=== PATIENT | female | born 1935 | race Caucasian/White ===

== ENCOUNTER 2018-03-09 14:25 | Inpatient (IN) | payer MEDICARE, OTHER ==
[2018-03-09] VITALS (7 sets, daily range): BP systolic 110–156; BP diastolic 51–106
[~2018-03-09] VITALS: Ht 157.5 cm; Wt 88.4 kg
[2018-03-09] MEDS: vancomycin/NS 1 GM ADD-VANTAGE 250 ML IV ONE ×2 (07:00→19:45)
[~2018-03-09 14:25] MED LIST: AMLO-93 PO; ASPI81TA47 PO; IBUP200C5 PO; MULT-1133 PO; SOY155CA PO
[2018-03-09] MEDS ORDERED: nitroGLYCERIN-Tridil 50MG/D5W 250 ML IV PRN ×2 (14:57→20:25)
[2018-03-09 15:53] LABS: MAGNESIUM 2.2 MG/DL (1.5-2.4); PHOSPHORUS 2.7 MG/DL (2.3-4.5)
[2018-03-09] MEDS ORDERED: iohexol 350MG/ML 100ml bottle IV ONE ×2 (16:10→17:11)
[2018-03-09] MEDS ORDERED: fentaNYL/PF 50MCG/1 ML 2ML syringe ONE (16:10)
[2018-03-09] MEDS ORDERED: midazolam 2 mg/2 ml injection ONE (16:10)
[2018-03-09] MEDS ORDERED: LIDOcaine 1%/PF (10mg/ml) 5ml vial ONE ×2 (16:17→17:33)
[2018-03-09] MEDS ORDERED: phenylephrine 10mg/ml inj IV ONE (17:04)
[2018-03-09] MEDS ORDERED: NORepinephrine 8mg/ 250ml NS 250 ML IV SCH ×2 (17:10→18:20)
[2018-03-09] MEDS ORDERED: iohexol 350 MG/ML 50ML vial IV ONE (17:17)
[2018-03-09] MEDS ORDERED: ondansetron/PF 4mg/2ml inj IV PRN (17:25)
[2018-03-09] MEDS ORDERED: mag hydrox/Alum hydrox/simeth 30ml oral suspension PO PRN (17:25)
[2018-03-09] MEDS ORDERED: acetaminophen 325mg tablet PO PRN (17:25)
[2018-03-09] MEDS ORDERED: magnesium hydroxide 30ml (MOM) UD suspension PO PRN (17:25)
[2018-03-09 19:18] LABS: BASOPHILS % (AUTO) 0.3 % (0-1); EOSINOPHILS # (AUTO) 0.2 X10'3 (0-0.9); EOSINOPHILS % (AUTO) 1.6 % (0-6); HEMATOCRIT 38.5 % (35.0-45.0); HEMOGLOBIN 13.5 g/dl (12.0-16.0); LYMPHOCYTES # (AUTO) 1.3 X10'3 (1.1-4.8); LYMPHOCYTES % (AUTO) 9.2 % (21-51); MEAN CORPUSCULAR HEMOGLOBIN 32.8 PG (27.0-31.0); MEAN CORPUSCULAR HGB CONC 35.2 % (33.0-36.5); MEAN CORPUSCULAR VOLUME 93.4 FL (78-98); MEAN PLATELET VOLUME 7.8 FL (7.4-10.4); MONOCYTES # (AUTO) 0.4 X10'3 (0-0.9); MONOCYTES % (AUTO) 3.1 % (2-12); NEUTROPHILS # (AUTO) 12.5 X10'3 (1.8-7.7); NEUTROPHILS % (AUTO) 85.8 % (42-75); PLATELET COUNT 238 X10'3 (140-440); RED BLOOD COUNT 4.12 X10'6 (4.20-5.60); RED CELL DISTRIBUTION WIDTH 13.8 % (11.5-14.5); WHITE BLOOD COUNT 14.6 X10'3 (4.5-11.0)
[2018-03-09 19:25] LABS: INR 1.1 INR; PARTIAL THROMBOPLASTIN TIME 27 SECONDS (22-32); PROTHROMBIN TIME 10.9 SECONDS (9.0-12.0)
[2018-03-09] MEDS ORDERED: HYDROmorphone inj. 0.5 MG/0.5 ML DISP.SYRIN IV PRN (19:30)
[2018-03-09 19:32] LABS: ALANINE AMINOTRANSFERASE 33 U/L (12-78); ALBUMIN 3.2 G/DL (3.4-5.0); ALKALINE PHOSPHATASE 53 IU/L (46-116); ANION GAP 11 (8-16); ASPARTATE AMINO TRANSFERASE 39 U/L (10-37); BILIRUBIN,TOTAL 0.3 MG/DL (0.1-1.0); BLOOD UREA NITROGEN 18 MG/DL (7-18); BUN/CREATININE RATIO 19.4 (6.6-38.0); CALCIUM 8.5 MG/DL (8.5-10.1); CHLORIDE 111 MMOL/L (99-107); CREATININE 0.93 MG/DL (0.40-0.90); GLUCOSE 138 MG/DL (70-104); MAGNESIUM 2.1 MG/DL (1.5-2.4); PHOSPHORUS 3.6 MG/DL (2.3-4.5); SODIUM 144 MMOL/L (135-145); TOTAL CARBON DIOXIDE 22.2 MMOL/L (24-32); TOTAL PROTEIN 6.4 G/DL (6.4-8.2); eGFR 58 ML/MIN
[2018-03-09] MEDS ORDERED: cefazolin/dext.iso 2gm/50ml 50 ML IV ONE (19:45)
[2018-03-09] MEDS ORDERED: MESSAGE TO NURSING PO ONE ×4 (19:45)
[2018-03-09] MEDS ORDERED: insulin regular, human inj. 100 UNITS in normal saline 100ml IV soln 100 ML IV SCH ×2 (19:45)
[2018-03-09] MEDS ORDERED: dextrose 50%-water 50ml dispensing syringe IV PRN (19:45)
[2018-03-09] MEDS: ceFAZolin 2gm in dextrose, iso 100 ML IV ONE (19:55)
[2018-03-09] MEDS ORDERED: mupirocin 2% ointment 22GM NS SCH (20:00)
[2018-03-09] MEDS: ringers solution, lacted 1,000 ML IV ONE (20:17)
[2018-03-09] MEDS ORDERED: heparin 10,000 units/1 ML INJ IV PRN (20:25)
[2018-03-09] MEDS ORDERED: heparin 10,000 units/1 ML INJ IV ONE (20:25)
[2018-03-10] VITALS (22 sets, daily range): BP systolic 68–150; BP diastolic 24–63
[2018-03-10 01:36] LABS: ABG BASE EXCESS -3.1 mmol/L (-2.0-3.0); ABG HCO3 19.3 mmol/L (22.0-26.0); ABG OXYGEN SATURATION 97.5 % (95-98); ABG PCO2 (T) 27.6 mmHg (32.0-45.0); ABG PH (T) 7.463 (7.350-7.450); FCOHb 0.3 % (0.5-1.5); FLOW 2 L/min; FMetHb 0.2 % (0.3-1.12); PATIENT TEMPERATURE 36.8; TOTAL HEMOGLOBIN 13.4 G/dl (12.0-16.0)
[2018-03-10 03:25] LABS: CLARITY,URINE CLEAR (Clear); COLOR,URINE YELLOW (Yellow); GLUCOSE, URINE NEGATIVE (Neg); KETONES,URINE NEGATIVE (Neg); LEUKOCYTE ESTERASE ,URINE NEGATIVE (Neg); NITRITES, URINE NEGATIVE (Neg); OCCULT BLOOD,URINE MODERATE (Neg); PROTEIN,URINE NEGATIVE (Neg); UROBILINOGEN,URINE 0.2 E.U/dL (0.2-1.0)
[2018-03-10 03:26] LABS: BASOPHILS # (AUTO) 0.1 X10'3 (0-0.2); BASOPHILS % (AUTO) 0.7 % (0-1); EOSINOPHILS # (AUTO) 0.1 X10'3 (0-0.9); EOSINOPHILS % (AUTO) 0.8 % (0-6); HEMATOCRIT 36.6 % (35.0-45.0); HEMOGLOBIN 12.6 g/dl (12.0-16.0); LYMPHOCYTES % (AUTO) 21.6 % (21-51); MEAN CORPUSCULAR HEMOGLOBIN 32.5 PG (27.0-31.0); MEAN CORPUSCULAR HGB CONC 34.4 % (33.0-36.5); MEAN CORPUSCULAR VOLUME 94.5 FL (78-98); MEAN PLATELET VOLUME 7.8 FL (7.4-10.4); MONOCYTES # (AUTO) 0.7 X10'3 (0-0.9); NEUTROPHILS # (AUTO) 6.6 X10'3 (1.8-7.7); NEUTROPHILS % (AUTO) 69.9 % (42-75); PLATELET COUNT 200 X10'3 (140-440); RED BLOOD COUNT 3.87 X10'6 (4.20-5.60); RED CELL DISTRIBUTION WIDTH 13.5 % (11.5-14.5); WHITE BLOOD COUNT 9.4 X10'3 (4.5-11.0)
[2018-03-10 03:32] LABS: ALANINE AMINOTRANSFERASE 36 U/L (12-78); ALBUMIN 2.9 G/DL (3.4-5.0); ALBUMIN/GLOBULIN RATIO 0.9 (1.1-1.5); ALKALINE PHOSPHATASE 48 IU/L (46-116); ANION GAP 9 (8-16); ASPARTATE AMINO TRANSFERASE 59 U/L (10-37); BILIRUBIN,TOTAL 0.4 MG/DL (0.1-1.0); BLOOD UREA NITROGEN 17 MG/DL (7-18); BUN/CREATININE RATIO 18.3 (6.6-38.0); CALCIUM 8.2 MG/DL (8.5-10.1); CHLORIDE 113 MMOL/L (99-107); CHOL/HDL RATIO 3.4 (0.00-4.99); CHOLESTEROL 195 MG/DL (0-200); CREATININE 0.93 MG/DL (0.40-0.90); GLUCOSE 117 MG/DL (70-104); HDL CHOLESTEROL 58 MG/DL (35-60); LDL CHOLESTEROL 120 MG/DL (50-100); MAGNESIUM 2.2 MG/DL (1.5-2.4); SODIUM 147 MMOL/L (135-145); TOTAL CARBON DIOXIDE 24.8 MMOL/L (24-32); TRIGLYCERIDES 69 MG/DL (20-135); eGFR 58 ML/MIN
[2018-03-10 03:43] LABS: UA COLLECTION TYPE FOLEY CATH
[2018-03-10 03:51] LABS: WBC,URINE NONE SEEN /HPF (0-4)
[2018-03-10 03:52] LABS: BACTERIA,URINE FEW /HPF (Neg); SQUAMOUS EPITHELIAL CELL,UR NONE SEEN /LPF (FEW)
[2018-03-10 03:53] LABS: YEAST FEW /HPF (NEGATIVE)
[2018-03-10] MEDS: ringers solution, lacted 1,000 ML IV ONE (05:00)
[2018-03-10] MEDS ORDERED: LORazepam 2 mg/ml vial IV ONE (06:00)
[2018-03-10] MEDS ORDERED: famotidine/PF 10 mg/ml inj IV ONE (06:00)
[2018-03-10] MEDS ORDERED: mupirocin 2% nasal ointment 1gm UD NS SCH (06:34)
[2018-03-10] MEDS ORDERED: LORazepam 2 mg/ml vial ONE (07:18)
[2018-03-10] MEDS ORDERED: SUFENTANIL CITRATE 50 MCG/ML 2ml ampule IV ONE (07:19)
[2018-03-10] MEDS ORDERED: nitroGLYCERIN in D5W 50mg/250ml (Tridil) infusion IV ONE (07:20)
[2018-03-10] MEDS ORDERED: protamine sulf. 10mg/ml inj. IV ONE (07:20)
[2018-03-10] MEDS ORDERED: isoflurane 100ml inhalation liquid IH ONE (07:20)
[2018-03-10] MEDS ORDERED: DOPamine/D5W 400mg/250ml bag IV ONE (07:20)
[2018-03-10] MEDS ORDERED: etomidate 2mg/ml inj. ONE (07:24)
[2018-03-10] MEDS ORDERED: rocuronium 10mg/ml inj IV ONE ×2 (07:24→13:24)
[2018-03-10] MEDS ORDERED: MAGNESIUM SULFATE 4 MEQ/ML (1gm/2ml) injection ONE (08:00)
[2018-03-10] MEDS ORDERED: phenylephrine 10mg/ml inj IV ONE (08:00)
[2018-03-10] MEDS ORDERED: albumin (human) 25% 100 ML IV solution IV ONE (08:00)
[2018-03-10] MEDS ORDERED: LIDOcaine 2% (20 mg/ml) 5ml cardiac syringe ONE (08:00)
[2018-03-10] MEDS ORDERED: atorvastatin 20mg tablet PO SCH (08:00)
[2018-03-10] MEDS ORDERED: calcium chloride 100 MG/1 ML inj IV ONE (08:00)
[2018-03-10] MEDS ORDERED: heparin 1,000 units/ml 10ml inj ONE (08:00)
[2018-03-10] MEDS ORDERED: potassium Cl 2 mEq/ml inj IV ONE (08:00)
[2018-03-10] MEDS ORDERED: aspirin 81mg tab.chew PO SCH (08:30)
[2018-03-10 08:36] LABS: ABG BASE EXCESS -4.4 mmol/L (-2.0-3.0); ABG HCO3 18.7 mmol/L (22.0-26.0); ABG OXYGEN SATURATION 99.4 % (95-98); ABG PCO2 28.8 mmHg (35.0-45.0); ABG PH 7.431 (7.350-7.450); ABG PO2 389.2 mmHg (60.0-100.0); CL (ABG) 115 mmol/L (99-107); FCOHb 0.3 % (0.5-1.5); FMetHb 0.3 % (0.3-1.12); FO2Hb 98.8 % (94-100); GLUCOSE (ABG) 112 mg/dl (70-105); IONIZED CA (ABG) 1.11 mmol/L (1.03-1.32); K (ABG) 3.8 mmol/L (3.3-5.1)
[2018-03-10] MEDS: insulin Lispro (HumaLOG) vial - multi-dose SQ SCH ×4 (09:00→17:00)
[2018-03-10 09:05] LABS: ACT @ 1.70 U 264 SEC (193-297); ACT @ 2.84 U 375 SEC (260-420); BASELINE ACT 138 SEC (101-148); PATIENT WEIGHT 81.0k KG
[2018-03-10] MEDS ORDERED: TRANEXAMIC ACID IV ONE (09:30)
[2018-03-10] MEDS ORDERED: NORMAL SALINE IV ONE (09:30)
[2018-03-10 09:31] LABS: ABG BASE EXCESS -5.1 mmol/L (-2.0-3.0); ABG HCO3 19.7 mmol/L (22.0-26.0); ABG OXYGEN SATURATION 99.2 % (95-98); ABG PCO2 35.8 mmHg (35.0-45.0); ABG PH 7.358 (7.350-7.450); ABG PO2 213.6 mmHg (60.0-100.0); CL (ABG) 114 mmol/L (99-107); FCOHb 0.2 % (0.5-1.5); FMetHb 0.2 % (0.3-1.12); FO2Hb 98.8 % (94-100); GLUCOSE (ABG) 124 mg/dl (70-105); IONIZED CA (ABG) 1.12 mmol/L (1.03-1.32); K (ABG) 3.8 mmol/L (3.3-5.1); TOTAL HEMOGLOBIN 12.1 G/dl (12.0-16.0)
[2018-03-10] MEDS ORDERED: papaverine 30 mg/ml 2ml inj. IA ONE (09:46)
[2018-03-10] MEDS ORDERED: MESSAGE TO NURSING PO ONE (10:00)
[2018-03-10 10:05] LABS: ABG BASE EXCESS -3.1 mmol/L (-2.0-3.0); ABG HCO3 20.7 mmol/L (22.0-26.0); ABG OXYGEN SATURATION 99.2 % (95-98); ABG PCO2 31.8 mmHg (35.0-45.0); ABG PH 7.431 (7.350-7.450); CL (ABG) 111 mmol/L (99-107); FCOHb 0.1 % (0.5-1.5); FMetHb 0.7 % (0.3-1.12); FO2Hb 98.4 % (94-100); GLUCOSE (ABG) 109 mg/dl (70-105); IONIZED CA (ABG) 0.94 mmol/L (1.03-1.32); K (ABG) 3.8 mmol/L (3.3-5.1); NA (ABG) 120 mmol/L (135-145); TOTAL HEMOGLOBIN 8.1 G/dl (12.0-16.0)
[2018-03-10 10:37] LABS: ABG HCO3 22.5 mmol/L (22.0-26.0); ABG OXYGEN SATURATION 99.2 % (95-98); ABG PH 7.402 (7.350-7.450); ABG PO2 460.3 mmHg (60.0-100.0); CL (ABG) 112 mmol/L (99-107); FCOHb 0.1 % (0.5-1.5); FMetHb 0.8 % (0.3-1.12); FO2Hb 98.3 % (94-100); GLUCOSE (ABG) 112 mg/dl (70-105); IONIZED CA (ABG) 0.94 mmol/L (1.03-1.32); K (ABG) 4.3 mmol/L (3.3-5.1); NA (ABG) 120 mmol/L (135-145); TOTAL HEMOGLOBIN 7.6 G/dl (12.0-16.0)
[2018-03-10 10:47] LABS: ABG BASE EXCESS VENOUS 1.7 mmol/L; ABG HCO3 VENOUS 26.6 mmol/L; ABG PCO2 VENOUS 43.4 mmHg; ABG PO2 VENOUS 51.4 mmHg; CL (ABG) 112 mmol/L (99-107); FCOHb VENOUS 0.3 %; FMetHb VENOUS 0.5 %; FO2Hb VENOUS 87.2 %; GLUCOSE (ABG) 119 mg/dl (70-105); IONIZED CA (ABG) 0.95 mmol/L (1.03-1.32); K (ABG) 4.6 mmol/L (3.3-5.1); TOTAL HEMOGLOBIN 8.5 G/dl (12.0-16.0)
[2018-03-10 11:06] LABS: ABG BASE EXCESS -3.7 mmol/L (-2.0-3.0); ABG HCO3 26.6 mmol/L (22.0-26.0); ABG OXYGEN SATURATION 99.2 % (95-98); ABG PO2 412.8 mmHg (60.0-100.0); CL (ABG) 113 mmol/L (99-107); FCOHb 0.2 % (0.5-1.5); FMetHb 0.9 % (0.3-1.12); FO2Hb 98.1 % (94-100); GLUCOSE (ABG) 177 mg/dl (70-105); IONIZED CA (ABG) 1.02 mmol/L (1.03-1.32); K (ABG) 4.1 mmol/L (3.3-5.1); NA (ABG) 136 mmol/L (135-145); TOTAL HEMOGLOBIN 8.2 G/dl (12.0-16.0)
[2018-03-10 11:06] LABS: ABG BASE EXCESS -3.4 mmol/L (-2.0-3.0); ABG HCO3 27.4 mmol/L (22.0-26.0); ABG OXYGEN SATURATION 99.3 % (95-98); CL (ABG) 113 mmol/L (99-107); FCOHb 0.1 % (0.5-1.5); FMetHb 0.9 % (0.3-1.12); FO2Hb 98.3 % (94-100); GLUCOSE (ABG) 162 mg/dl (70-105); IONIZED CA (ABG) 1.01 mmol/L (1.03-1.32); K (ABG) 4.2 mmol/L (3.3-5.1); NA (ABG) 137 mmol/L (135-145); TOTAL HEMOGLOBIN 8.1 G/dl (12.0-16.0)
[2018-03-10 11:16] LABS: ABG BASE EXCESS -3.1 mmol/L (-2.0-3.0); ABG HCO3 24.7 mmol/L (22.0-26.0); ABG OXYGEN SATURATION 99.3 % (95-98); ABG PCO2 61.8 mmHg (35.0-45.0); ABG PO2 466.9 mmHg (60.0-100.0); CL (ABG) 114 mmol/L (99-107); FCOHb 0.3 % (0.5-1.5); FMetHb 0.9 % (0.3-1.12); FO2Hb 98.1 % (94-100); GLUCOSE (ABG) 184 mg/dl (70-105); IONIZED CA (ABG) 0.97 mmol/L (1.03-1.32); NA (ABG) 132 mmol/L (135-145); TOTAL HEMOGLOBIN 7.8 G/dl (12.0-16.0)
[2018-03-10 11:20] LABS: ABG BASE EXCESS -2.9 mmol/L (-2.0-3.0); ABG HCO3 21.1 mmol/L (22.0-26.0); ABG OXYGEN SATURATION 99.2 % (95-98); ABG PCO2 32.8 mmHg (35.0-45.0); ABG PH 7.427 (7.350-7.450); ABG PO2 465.1 mmHg (60.0-100.0); CL (ABG) 113 mmol/L (99-107); FCOHb 0.3 % (0.5-1.5); FMetHb 0.9 % (0.3-1.12); GLUCOSE (ABG) 164 mg/dl (70-105); IONIZED CA (ABG) 0.95 mmol/L (1.03-1.32); K (ABG) 4.3 mmol/L (3.3-5.1); NA (ABG) 135 mmol/L (135-145); TOTAL HEMOGLOBIN 7.1 G/dl (12.0-16.0)
[2018-03-10 11:25] LABS: ABG BASE EXCESS 4.7 mmol/L (-2.0-3.0); ABG HCO3 27.8 mmol/L (22.0-26.0); ABG OXYGEN SATURATION 99.3 % (95-98); ABG PCO2 34.2 mmHg (35.0-45.0); ABG PH 7.528 (7.350-7.450); ABG PO2 452.3 mmHg (60.0-100.0); CL (ABG) 112 mmol/L (99-107); FCOHb 0.7 % (0.5-1.5); FMetHb 0.8 % (0.3-1.12); FO2Hb 97.8 % (94-100); GLUCOSE (ABG) 165 mg/dl (70-105); IONIZED CA (ABG) 0.91 mmol/L (1.03-1.32); NA (ABG) 138 mmol/L (135-145)
[2018-03-10 11:46] LABS: ABG BASE EXCESS -1.2 mmol/L (-2.0-3.0); ABG HCO3 24.1 mmol/L (22.0-26.0); ABG OXYGEN SATURATION 99.1 % (95-98); ABG PCO2 42.5 mmHg (35.0-45.0); ABG PH 7.371 (7.350-7.450); ABG PO2 411.6 mmHg (60.0-100.0); CL (ABG) 113 mmol/L (99-107); FCOHb 0.3 % (0.5-1.5); FMetHb 0.8 % (0.3-1.12); GLUCOSE (ABG) 185 mg/dl (70-105); IONIZED CA (ABG) 1.08 mmol/L (1.03-1.32); K (ABG) 4.6 mmol/L (3.3-5.1); NA (ABG) 138 mmol/L (135-145); TOTAL HEMOGLOBIN 8.8 G/dl (12.0-16.0)
[2018-03-10 12:20] LABS: ABG BASE EXCESS 1.5 mmol/L (-2.0-3.0); ABG HCO3 26.2 mmol/L (22.0-26.0); ABG OXYGEN SATURATION 99.2 % (95-98); ABG PCO2 41.9 mmHg (35.0-45.0); ABG PH 7.414 (7.350-7.450); ABG PO2 389.7 mmHg (60.0-100.0); CL (ABG) 113 mmol/L (99-107); FCOHb 0.3 % (0.5-1.5); FMetHb 0.6 % (0.3-1.12); FO2Hb 98.3 % (94-100); GLUCOSE (ABG) 170 mg/dl (70-105); IONIZED CA (ABG) 1.14 mmol/L (1.03-1.32); K (ABG) 4.3 mmol/L (3.3-5.1); NA (ABG) 140 mmol/L (135-145); TOTAL HEMOGLOBIN 8.4 G/dl (12.0-16.0)
[2018-03-10 12:55] LABS: ABG BASE EXCESS -0.8 mmol/L (-2.0-3.0); ABG HCO3 23.3 mmol/L (22.0-26.0); ABG OXYGEN SATURATION 98.5 % (95-98); ABG PCO2 35.8 mmHg (35.0-45.0); ABG PH 7.431 (7.350-7.450); ABG PO2 138.2 mmHg (60.0-100.0); CL (ABG) 113 mmol/L (99-107); FCOHb 0.4 % (0.5-1.5); FMetHb 0.4 % (0.3-1.12); FO2Hb 97.7 % (94-100); GLUCOSE (ABG) 149 mg/dl (70-105); IONIZED CA (ABG) 1.05 mmol/L (1.03-1.32); NA (ABG) 139 mmol/L (135-145); TOTAL HEMOGLOBIN 8.8 G/dl (12.0-16.0)
[2018-03-10] MEDS ORDERED: normal saline 250ml IV soln 250 ML IV PRN (13:30)
[2018-03-10] MEDS ORDERED: HYDROcodone/acetaminophen 10/325mg tab PO PRN ×2 (13:30)
[2018-03-10] MEDS ORDERED: dextrose 50%-water 50ml dispensing syringe IV PRN (13:30)
[2018-03-10] MEDS: sodium chloride 0.45% 1,000 ML IV SCH (13:30)
[2018-03-10] MEDS ORDERED: acetaminophen 325mg tablet PO PRN (13:30)
[2018-03-10] MEDS ORDERED: magnesium 2GM in 50ml NS 50 ML IV PRN (13:30)
[2018-03-10] MEDS ORDERED: sodium phosphate inj. 15 MMOL in dextrose 5%-water 150 ML IV PRN (13:30)
[2018-03-10] MEDS ORDERED: potassium Cl 20mEq/100mL bag 100 ML IV PRN (13:30)
[2018-03-10] MEDS ORDERED: sodium phosphate inj. 30 MMOL in dextrose 5%-water 250 ML IV PRN (13:30)
[2018-03-10] MEDS ORDERED: Neutra Phos packet PO PRN (13:30)
[2018-03-10] MEDS: insulin regular, human inj. 100 UNITS in normal saline 100ml IV soln 100 ML IV SCH ×12 (13:30→23:07)
[2018-03-10] MEDS ORDERED: magnesium hydroxide 30ml (MOM) UD suspension PO PRN (13:30)
[2018-03-10] MEDS ORDERED: ondansetron/PF 4mg/2ml inj IV PRN (13:30)
[2018-03-10] MEDS ORDERED: magnesium 4gm in 100ml NS 100 ML IV PRN (13:30)
[2018-03-10] MEDS ORDERED: metoclopramide 5 mg/ml inj IV PRN (13:30)
[2018-03-10] MEDS ORDERED: niCARDipine/sod cl 20mg/200ml 200 ML IV PRN (13:30)
[2018-03-10] MEDS ORDERED: nitroGLYCERIN-Tridil 50MG/D5W 250 ML IV PRN (13:30)
[2018-03-10 14:01] LABS: ABG BASE EXCESS -5.8 mmol/L (-2.0-3.0); ABG HCO3 18.8 mmol/L (22.0-26.0); ABG OXYGEN SATURATION 97.2 % (95-98); ABG PCO2 (T) 33.8 mmHg (32.0-45.0); ABG PH (T) 7.362 (7.350-7.450); FCOHb 0.3 % (0.5-1.5); FMetHb 0.2 % (0.3-1.12); FO2Hb 96.7 % (94-100); PATIENT TEMPERATURE 36.6; PEEP 5 cm H2O; RESPIRATORY RATE 12 b/min; TIDAL VOLUME 450 mL; TOTAL HEMOGLOBIN 12.9 G/dl (12.0-16.0)
[2018-03-10 14:09] LABS: BASOPHILS % (AUTO) 0.1 % (0-1); EOSINOPHILS # (AUTO) 0.1 X10'3 (0-0.9); EOSINOPHILS % (AUTO) 1.1 % (0-6); HEMATOCRIT 35.2 % (35.0-45.0); HEMOGLOBIN 12.2 g/dl (12.0-16.0); LYMPHOCYTES # (AUTO) 0.9 X10'3 (1.1-4.8); LYMPHOCYTES % (AUTO) 7.5 % (21-51); MEAN CORPUSCULAR HEMOGLOBIN 31.5 PG (27.0-31.0); MEAN CORPUSCULAR HGB CONC 34.7 % (33.0-36.5); MEAN CORPUSCULAR VOLUME 90.9 FL (78-98); MEAN PLATELET VOLUME 7.4 FL (7.4-10.4); MONOCYTES # (AUTO) 0.6 X10'3 (0-0.9); MONOCYTES % (AUTO) 4.8 % (2-12); NEUTROPHILS # (AUTO) 10.4 X10'3 (1.8-7.7); NEUTROPHILS % (AUTO) 86.5 % (42-75); PLATELET COUNT 71 X10'3 (140-440); RED BLOOD COUNT 3.87 X10'6 (4.20-5.60); RED CELL DISTRIBUTION WIDTH 15.1 % (11.5-14.5); WHITE BLOOD COUNT 12.1 X10'3 (4.5-11.0)
[2018-03-10 14:19] LABS: INR 1.2 INR; PARTIAL THROMBOPLASTIN TIME 34 SECONDS (22-32); PROTHROMBIN TIME 12.1 SECONDS (9.0-12.0)
[2018-03-10 14:24] LABS: ALANINE AMINOTRANSFERASE 29 U/L (12-78); ALBUMIN 2.8 G/DL (3.4-5.0); ALBUMIN/GLOBULIN RATIO 1.3 (1.1-1.5); ALKALINE PHOSPHATASE 31 IU/L (46-116); ANION GAP 13 (8-16); BLOOD UREA NITROGEN 15 MG/DL (7-18); BUN/CREATININE RATIO 14.7 (6.6-38.0); CALCIUM 7.9 MG/DL (8.5-10.1); CHLORIDE 116 MMOL/L (99-107); CREATININE 1.02 MG/DL (0.40-0.90); GLUCOSE 161 MG/DL (70-104); MAGNESIUM 3.7 MG/DL (1.5-2.4); SODIUM 153 MMOL/L (135-145); TOTAL CARBON DIOXIDE 24.5 MMOL/L (24-32); TOTAL PROTEIN 4.9 G/DL (6.4-8.2); eGFR 52 ML/MIN
[2018-03-10 14:25] LABS: ASPARTATE AMINO TRANSFERASE 104 U/L (10-37); PHOSPHORUS 2.9 MG/DL (2.3-4.5); POTASSIUM 3.6 MMOL/L (3.5-5.1)
[2018-03-10 14:36] LABS: ACTIVATED CLOTTING TIME 127 SEC (101-148)
[2018-03-10 14:46] LABS: ABG PH 7.069 (7.350-7.450)
[2018-03-10 14:46] LABS: NA (ABG) 118 mmol/L (135-145)
[2018-03-10 14:46] LABS: NA (ABG) 118 mmol/L (135-145)
[2018-03-10 14:47] LABS: ABG PCO2 96.8 mmHg (35.0-45.0)
[2018-03-10 14:47] LABS: ABG PH 7.093 (7.350-7.450)
[2018-03-10 14:48] LABS: TOTAL HEMOGLOBIN 6.8 G/dl (12.0-16.0)
[2018-03-10] MEDS: potassium Cl 20mEq/100mL bag 100 ML IV PRN ×2 (15:36→16:17)
[2018-03-10] MEDS: HYDROmorphone inj. 0.5 MG/0.5 ML DISP.SYRIN IV PRN ×2 (15:36→18:44)
[2018-03-10] MEDS: albumin (Human) 5% 250ml 250 ML IV PRN (15:37)
[2018-03-10] MEDS: ceFAZolin 1GM/D5W- ADD-VANTAGE 50 ML IV SCH (16:46)
[2018-03-10 19:23] LABS: BASOPHILS % (AUTO) 0 % (0-1); EOSINOPHILS # (AUTO) 0.1 X10'3 (0-0.9); HEMATOCRIT 33.8 % (35.0-45.0); HEMOGLOBIN 11.6 g/dl (12.0-16.0); LYMPHOCYTES # (AUTO) 0.5 X10'3 (1.1-4.8); LYMPHOCYTES % (AUTO) 3.4 % (21-51); MEAN CORPUSCULAR HEMOGLOBIN 31.2 PG (27.0-31.0); MEAN CORPUSCULAR HGB CONC 34.2 % (33.0-36.5); MEAN CORPUSCULAR VOLUME 91.1 FL (78-98); MEAN PLATELET VOLUME 7.8 FL (7.4-10.4); MONOCYTES # (AUTO) 0.5 X10'3 (0-0.9); MONOCYTES % (AUTO) 3.7 % (2-12); NEUTROPHILS # (AUTO) 12.7 X10'3 (1.8-7.7); NEUTROPHILS % (AUTO) 91.9 % (42-75); RED BLOOD COUNT 3.71 X10'6 (4.20-5.60); RED CELL DISTRIBUTION WIDTH 15.5 % (11.5-14.5); WHITE BLOOD COUNT 13.8 X10'3 (4.5-11.0)
[2018-03-10 19:31] LABS: ALBUMIN 2.9 G/DL (3.4-5.0); ANION GAP 15 (8-16); BLOOD UREA NITROGEN 17 MG/DL (7-18); CALCIUM 7.5 MG/DL (8.5-10.1); CHLORIDE 117 MMOL/L (99-107); CREATININE 1.21 MG/DL (0.40-0.90); GLUCOSE 223 MG/DL (70-104); SODIUM 151 MMOL/L (135-145); TOTAL CARBON DIOXIDE 19.1 MMOL/L (24-32); eGFR 43 ML/MIN
[2018-03-10] MEDS: docusate sod 100mg capsule PO SCH (20:00)
[2018-03-10] MEDS: DOBUTamine-DoBUTrex 500mg/D5W 250 ML IV SCH (20:12)
[2018-03-10 20:18] LABS: PLATELET COUNT 74 X10'3 (140-440)
[2018-03-10] MEDS: vancomycin/NS 1 GM ADD-VANTAGE 250 ML IV SCH (20:22)
[2018-03-10] MEDS: mupirocin 2% ointment 22GM NS SCH (20:23)
[2018-03-10] MEDS: epiNEPHrine inj 5 MG, calcium chloride inj. 1,000 MG in normal saline 250ml IV soln 235 ML IV PRN (21:51)
[2018-03-10 23:01] LABS: BASOPHILS % (AUTO) 0.1 % (0-1); EOSINOPHILS # (AUTO) 0.1 X10'3 (0-0.9); EOSINOPHILS % (AUTO) 0.9 % (0-6); HEMATOCRIT 25.9 % (35.0-45.0); HEMOGLOBIN 8.9 g/dl (12.0-16.0); LYMPHOCYTES # (AUTO) 0.4 X10'3 (1.1-4.8); LYMPHOCYTES % (AUTO) 3.9 % (21-51); MEAN CORPUSCULAR HEMOGLOBIN 31.4 PG (27.0-31.0); MEAN CORPUSCULAR HGB CONC 34.5 % (33.0-36.5); MEAN CORPUSCULAR VOLUME 91.2 FL (78-98); MEAN PLATELET VOLUME 7.5 FL (7.4-10.4); MONOCYTES # (AUTO) 0.3 X10'3 (0-0.9); MONOCYTES % (AUTO) 3.1 % (2-12); NEUTROPHILS # (AUTO) 10.1 X10'3 (1.8-7.7); PLATELET COUNT 119 X10'3 (140-440); RED BLOOD COUNT 2.84 X10'6 (4.20-5.60); RED CELL DISTRIBUTION WIDTH 15.6 % (11.5-14.5)
[2018-03-10 23:12] LABS: INR 1.1 INR; PARTIAL THROMBOPLASTIN TIME 29 SECONDS (22-32); PROTHROMBIN TIME 11.2 SECONDS (9.0-12.0)
[2018-03-10 23:15] LABS: ALANINE AMINOTRANSFERASE 29 U/L (12-78); ALBUMIN 2.9 G/DL (3.4-5.0); ALBUMIN/GLOBULIN RATIO 1.3 (1.1-1.5); ALKALINE PHOSPHATASE 34 IU/L (46-116); ANION GAP 18 (8-16); ASPARTATE AMINO TRANSFERASE 92 U/L (10-37); BILIRUBIN,TOTAL 0.8 MG/DL (0.1-1.0); BLOOD UREA NITROGEN 19 MG/DL (7-18); BUN/CREATININE RATIO 13.7 (6.6-38.0); CHLORIDE 116 MMOL/L (99-107); CREATININE 1.39 MG/DL (0.40-0.90); GLUCOSE 202 MG/DL (70-104); POTASSIUM 3.9 MMOL/L (3.5-5.1); SODIUM 152 MMOL/L (135-145); TOTAL CARBON DIOXIDE 17.6 MMOL/L (24-32); TOTAL PROTEIN 5.2 G/DL (6.4-8.2); eGFR 36 ML/MIN
[2018-03-11] VITALS (24 sets, daily range): BP systolic 43–165; BP diastolic 22–45
[2018-03-11] MEDS ORDERED: furosemide 10 MG/1 ML 10ml inj IV ONE (00:05)
[2018-03-11] MEDS: insulin regular, human inj. 100 UNITS in normal saline 100ml IV soln 100 ML IV SCH ×30 (00:11→23:37)
[2018-03-11] MEDS: ceFAZolin 1GM/D5W- ADD-VANTAGE 50 ML IV SCH ×3 (00:16→15:54)
[2018-03-11] MEDS: potassium Cl 20mEq/100mL bag 100 ML IV PRN (01:12)
[2018-03-11 02:50] LABS: ABG BASE EXCESS -9.7 mmol/L (-2.0-3.0); ABG HCO3 14.4 mmol/L (22.0-26.0); ABG OXYGEN SATURATION 93.9 % (95-98); ABG PH (T) 7.359 (7.350-7.450); ABG PO2 (T) 71.5 mmHg (83-108); FCOHb 0.3 % (0.5-1.5); FMetHb 0.1 % (0.3-1.12); FO2Hb 93.5 % (94-100); MINUTE VOLUME 8 L/min; PATIENT TEMPERATURE 36.5; PEEP 5 cm H2O; RESPIRATORY RATE 10 b/min; RESPIRATORY RATE (OBSERVED) 14 b/min; TIDAL VOLUME 450 mL
[2018-03-11 03:39] LABS: BASOPHILS % (AUTO) 0 % (0-1); EOSINOPHILS % (AUTO) 0 % (0-6); HEMATOCRIT 29.3 % (35.0-45.0); HEMOGLOBIN 10.2 g/dl (12.0-16.0); LYMPHOCYTES # (AUTO) 0.5 X10'3 (1.1-4.8); MEAN CORPUSCULAR HEMOGLOBIN 30.6 PG (27.0-31.0); MEAN CORPUSCULAR HGB CONC 34.9 % (33.0-36.5); MEAN CORPUSCULAR VOLUME 87.6 FL (78-98); MEAN PLATELET VOLUME 7.8 FL (7.4-10.4); MONOCYTES # (AUTO) 0.5 X10'3 (0-0.9); MONOCYTES % (AUTO) 4.8 % (2-12); NEUTROPHILS % (AUTO) 90.2 % (42-75); PLATELET COUNT 93 X10'3 (140-440); RED BLOOD COUNT 3.35 X10'6 (4.20-5.60)
[2018-03-11 03:49] LABS: INR 1.1 INR; PARTIAL THROMBOPLASTIN TIME 26 SECONDS (22-32); PROTHROMBIN TIME 11.2 SECONDS (9.0-12.0)
[2018-03-11 03:53] LABS: ALANINE AMINOTRANSFERASE 29 U/L (12-78); ALBUMIN 2.9 G/DL (3.4-5.0); ALBUMIN/GLOBULIN RATIO 1.3 (1.1-1.5); ALKALINE PHOSPHATASE 35 IU/L (46-116); ANION GAP 13 (8-16); ASPARTATE AMINO TRANSFERASE 102 U/L (10-37); BILIRUBIN,TOTAL 0.5 MG/DL (0.1-1.0); BLOOD UREA NITROGEN 21 MG/DL (7-18); CALCIUM 7.9 MG/DL (8.5-10.1); CHLORIDE 118 MMOL/L (99-107); GLUCOSE 152 MG/DL (70-104); MAGNESIUM 2.8 MG/DL (1.5-2.4); PHOSPHORUS 2.6 MG/DL (2.3-4.5); POTASSIUM 5.1 MMOL/L (3.5-5.1); SODIUM 150 MMOL/L (135-145); TOTAL CARBON DIOXIDE 18.9 MMOL/L (24-32); TOTAL PROTEIN 5.2 G/DL (6.4-8.2); eGFR 33 ML/MIN
[2018-03-11] MEDS ORDERED: sodium bicarbonate (8.4%) 1 mEq/ml syringe ONE ×2 (07:07→14:25)
[2018-03-11] MEDS: albumin (Human) 5% 250ml 250 ML IV PRN ×4 (07:51→15:05)
[2018-03-11] MEDS: DOBUTamine-DoBUTrex 500mg/D5W 250 ML IV SCH (07:54)
[2018-03-11] MEDS: docusate sod 100mg capsule PO SCH ×2 (08:00→20:22)
[2018-03-11] MEDS: atorvastatin 10mg tablet PO SCH (08:17)
[2018-03-11] MEDS: aspirin 325mg tablet, delayed-release (Ecotrin) PO SCH (08:17)
[2018-03-11] MEDS: metoprolol tartrate 12.5mg (1/2 tablet) PO SCH ×2 (08:17→20:21)
[2018-03-11] MEDS: pantoprazole 40mg Tablet.DR PO SCH (08:17)
[2018-03-11] MEDS: mupirocin 2% ointment 22GM NS SCH ×2 (08:18→20:22)
[2018-03-11] MEDS: vancomycin/NS 1 GM ADD-VANTAGE 250 ML IV SCH ×2 (08:23→20:21)
[2018-03-11] MEDS: morphine 4 MG/ML inj SYRINge IV PRN ×4 (08:48→21:54)
[2018-03-11] MEDS: insulin Lispro (HumaLOG) vial - multi-dose SQ SCH ×3 (08:50→15:55)
[2018-03-11 09:32] LABS: BASOPHILS % (AUTO) 0 % (0-1); EOSINOPHILS % (AUTO) 0 % (0-6); HEMATOCRIT 26.3 % (35.0-45.0); HEMOGLOBIN 9.4 g/dl (12.0-16.0); LYMPHOCYTES # (AUTO) 0.6 X10'3 (1.1-4.8); LYMPHOCYTES % (AUTO) 5.2 % (21-51); MEAN CORPUSCULAR HEMOGLOBIN 30.9 PG (27.0-31.0); MEAN CORPUSCULAR HGB CONC 35.5 % (33.0-36.5); MEAN CORPUSCULAR VOLUME 86.9 FL (78-98); MEAN PLATELET VOLUME 7.9 FL (7.4-10.4); MONOCYTES # (AUTO) 0.7 X10'3 (0-0.9); MONOCYTES % (AUTO) 6.1 % (2-12); NEUTROPHILS # (AUTO) 10.5 X10'3 (1.8-7.7); NEUTROPHILS % (AUTO) 88.7 % (42-75); PLATELET COUNT 89 X10'3 (140-440); RED BLOOD COUNT 3.03 X10'6 (4.20-5.60); WHITE BLOOD COUNT 11.8 X10'3 (4.5-11.0)
[2018-03-11 09:46] LABS: ALBUMIN 3.2 G/DL (3.4-5.0); ANION GAP 14 (8-16); BLOOD UREA NITROGEN 22 MG/DL (7-18); BUN/CREATININE RATIO 13.3 (6.6-38.0); CALCIUM 8.2 MG/DL (8.5-10.1); CHLORIDE 116 MMOL/L (99-107); CREATININE 1.65 MG/DL (0.40-0.90); GLUCOSE 166 MG/DL (70-104); MAGNESIUM 2.7 MG/DL (1.5-2.4); PHOSPHORUS 2.1 MG/DL (2.3-4.5); POTASSIUM 4.1 MMOL/L (3.5-5.1); SODIUM 150 MMOL/L (135-145); TOTAL CARBON DIOXIDE 20.3 MMOL/L (24-32); eGFR 30 ML/MIN
[2018-03-11] MEDS: furosemide inj 100 ML IV SCH (10:02)
[2018-03-11] MEDS ORDERED: albumin (Human) 5% 250 ML IV solution IV STA ×2 (13:04→14:23)
[2018-03-11] MEDS: epiNEPHrine inj 5 MG, calcium chloride inj. 1,000 MG in normal saline 250ml IV soln 235 ML IV PRN (13:21)
[2018-03-11] MEDS ORDERED: methylPREDNISolone sod succ 125mg/2ml vial IV STA (14:09)
[2018-03-11 14:20] LABS: ABG BASE EXCESS -4.2 mmol/L (-2.0-3.0); ABG HCO3 18.2 mmol/L (22.0-26.0); ABG OXYGEN SATURATION 98.1 % (95-98); ABG PCO2 (T) 24.8 mmHg (32.0-45.0); ABG PH (T) 7.483 (7.350-7.450); ABG PO2 (T) 127.6 mmHg (83-108); FCOHb 0.2 % (0.5-1.5); FMetHb 0.3 % (0.3-1.12); FO2Hb 97.6 % (94-100); PATIENT TEMPERATURE 37.2; PEEP 5 cm H2O; RESPIRATORY RATE 10 b/min; TIDAL VOLUME 450 mL; TOTAL HEMOGLOBIN 9.6 G/dl (12.0-16.0)
[2018-03-11] MEDS ORDERED: sodium bicarbonate (8.4%) 1 mEq/ml syringe IV ONE (14:25)
[2018-03-11] MEDS ORDERED: calcium chloride inj. 1,000 MG in normal saline 100ml IV soln 90 ML IV ONE (14:25)
[2018-03-11 15:42] LABS: ALBUMIN 3.4 G/DL (3.4-5.0); ANION GAP 16 (8-16); BLOOD UREA NITROGEN 26 MG/DL (7-18); BUN/CREATININE RATIO 14.1 (6.6-38.0); CALCIUM 8.1 MG/DL (8.5-10.1); CHLORIDE 114 MMOL/L (99-107); CREATININE 1.84 MG/DL (0.40-0.90); GLUCOSE 199 MG/DL (70-104); MAGNESIUM 2.8 MG/DL (1.5-2.4); PHOSPHORUS 2.8 MG/DL (2.3-4.5); POTASSIUM 5.1 MMOL/L (3.5-5.1); SODIUM 149 MMOL/L (135-145); eGFR 26 ML/MIN
[2018-03-11 17:25] LABS: ABG OXYGEN SATURATION 84.3 % (95-98); ABG PCO2 (T) 25.1 mmHg (32.0-45.0); ABG PH (T) 7.446 (7.350-7.450); ABG PO2 (T) 46.4 mmHg (83-108); FCOHb 0.3 % (0.5-1.5); FMetHb 0.2 % (0.3-1.12); FO2Hb 83.9 % (94-100); PATIENT TEMPERATURE 36.5; PEEP 5 cm H2O; RESPIRATORY RATE 10 b/min; TIDAL VOLUME 450 mL; TOTAL HEMOGLOBIN 9.5 G/dl (12.0-16.0)
[2018-03-11] MEDS: albuterol 2.5 MG/3 ML nebule NEB PRN ×2 (19:24→23:17)
[2018-03-11] MEDS: lactobacillus rhamnosus 10,000 MMU CELLS/CAPSULE PO SCH (20:21)
[2018-03-11 23:27] LABS: HEMATOCRIT 25.9 % (35.0-45.0); MEAN CORPUSCULAR HEMOGLOBIN 30.7 PG (27.0-31.0); MEAN CORPUSCULAR HGB CONC 34.8 % (33.0-36.5); MEAN CORPUSCULAR VOLUME 88.2 FL (78-98); MEAN PLATELET VOLUME 8.6 FL (7.4-10.4); PLATELET COUNT 70 X10'3 (140-440); RED BLOOD COUNT 2.93 X10'6 (4.20-5.60); RED CELL DISTRIBUTION WIDTH 16.4 % (11.5-14.5); WHITE BLOOD COUNT 13.6 X10'3 (4.5-11.0)
[2018-03-11 23:35] LABS: ALBUMIN 3.6 G/DL (3.4-5.0); ANION GAP 15 (8-16); BLOOD UREA NITROGEN 29 MG/DL (7-18); BUN/CREATININE RATIO 13.9 (6.6-38.0); CALCIUM 8.8 MG/DL (8.5-10.1); CHLORIDE 113 MMOL/L (99-107); CREATININE 2.09 MG/DL (0.40-0.90); GLUCOSE 222 MG/DL (70-104); MAGNESIUM 2.6 MG/DL (1.5-2.4); PHOSPHORUS 3.8 MG/DL (2.3-4.5); POTASSIUM 3.7 MMOL/L (3.5-5.1); SODIUM 148 MMOL/L (135-145); TOTAL CARBON DIOXIDE 19.7 MMOL/L (24-32); eGFR 23 ML/MIN
[2018-03-12] VITALS (24 sets, daily range): BP systolic 80–174; BP diastolic 31–60
[2018-03-12] MEDS: ceFAZolin 1GM/D5W- ADD-VANTAGE 50 ML IV SCH (00:25)
[2018-03-12] MEDS: potassium Cl 20mEq/100mL bag 100 ML IV PRN ×2 (00:30→01:47)
[2018-03-12] MEDS: insulin regular, human inj. 100 UNITS in normal saline 100ml IV soln 100 ML IV SCH ×8 (00:30→15:51)
[2018-03-12] MEDS ORDERED: insulin R INFUSION 1 ML IV ONE (01:23)
[2018-03-12] MEDS: morphine 4 MG/ML inj SYRINge IV PRN (01:46)
[2018-03-12] MEDS: albuterol 2.5 MG/3 ML nebule NEB PRN (02:34)
[2018-03-12 02:51] LABS: ABG BASE EXCESS -2.3 mmol/L (-2.0-3.0); ABG HCO3 21.3 mmol/L (22.0-26.0); ABG OXYGEN SATURATION 97.4 % (95-98); ABG PCO2 (T) 31.6 mmHg (32.0-45.0); ABG PH (T) 7.445 (7.350-7.450); ABG PO2 (T) 106.6 mmHg (83-108); FCOHb 0.2 % (0.5-1.5); FMetHb 0.3 % (0.3-1.12); FO2Hb 96.9 % (94-100); MINUTE VOLUME 8 L/min; PATIENT TEMPERATURE 36.5; PEEP 10 cm H2O; RESPIRATORY RATE 10 b/min; RESPIRATORY RATE (OBSERVED) 14 b/min; TIDAL VOLUME 450 mL; TOTAL HEMOGLOBIN 9.8 G/dl (12.0-16.0)
[2018-03-12 03:10] LABS: BASOPHILS % (AUTO) 0.1 % (0-1); EOSINOPHILS # (AUTO) 0.1 X10'3 (0-0.9); EOSINOPHILS % (AUTO) 0.6 % (0-6); HEMATOCRIT 25.9 % (35.0-45.0); LYMPHOCYTES # (AUTO) 0.9 X10'3 (1.1-4.8); LYMPHOCYTES % (AUTO) 6.8 % (21-51); MEAN CORPUSCULAR HEMOGLOBIN 31.1 PG (27.0-31.0); MEAN CORPUSCULAR HGB CONC 34.6 % (33.0-36.5); MEAN CORPUSCULAR VOLUME 89.9 FL (78-98); MEAN PLATELET VOLUME 8.3 FL (7.4-10.4); MONOCYTES # (AUTO) 0.6 X10'3 (0-0.9); MONOCYTES % (AUTO) 4.4 % (2-12); NEUTROPHILS # (AUTO) 12.1 X10'3 (1.8-7.7); NEUTROPHILS % (AUTO) 88.1 % (42-75); PLATELET COUNT 65 X10'3 (140-440); RED BLOOD COUNT 2.89 X10'6 (4.20-5.60); RED CELL DISTRIBUTION WIDTH 16.8 % (11.5-14.5); WHITE BLOOD COUNT 13.7 X10'3 (4.5-11.0)
[2018-03-12 03:27] LABS: ALANINE AMINOTRANSFERASE 85 U/L (12-78); ALBUMIN 3.6 G/DL (3.4-5.0); ALBUMIN/GLOBULIN RATIO 1.6 (1.1-1.5); ALKALINE PHOSPHATASE 33 IU/L (46-116); ANION GAP 12 (8-16); ASPARTATE AMINO TRANSFERASE 293 U/L (10-37); BLOOD UREA NITROGEN 32 MG/DL (7-18); BUN/CREATININE RATIO 15.9 (6.6-38.0); CALCIUM 8.8 MG/DL (8.5-10.1); CHLORIDE 113 MMOL/L (99-107); CREATININE 2.01 MG/DL (0.40-0.90); GLUCOSE 180 MG/DL (70-104); MAGNESIUM 2.7 MG/DL (1.5-2.4); PHOSPHORUS 3.5 MG/DL (2.3-4.5); POTASSIUM 4.4 MMOL/L (3.5-5.1); SODIUM 147 MMOL/L (135-145); TOTAL CARBON DIOXIDE 22.5 MMOL/L (24-32); TOTAL PROTEIN 5.8 G/DL (6.4-8.2); eGFR 24 ML/MIN
[2018-03-12] MEDS: DOBUTamine-DoBUTrex 500mg/D5W 250 ML IV SCH (04:37)
[2018-03-12] MEDS: furosemide inj 100 ML IV SCH ×2 (04:40→13:44)
[2018-03-12] MEDS: aspirin 325mg tablet, delayed-release (Ecotrin) PO SCH (07:31)
[2018-03-12] MEDS: metoprolol tartrate 12.5mg (1/2 tablet) PO SCH ×2 (07:31→20:56)
[2018-03-12] MEDS: atorvastatin 10mg tablet PO SCH (07:31)
[2018-03-12] MEDS: pantoprazole 40mg Tablet.DR PO SCH (07:31)
[2018-03-12] MEDS: lactobacillus rhamnosus 10,000 MMU CELLS/CAPSULE PO SCH ×2 (07:31→20:56)
[2018-03-12] MEDS: mineral oil/petrolatum ophthal oint EACHEYE SCH ×4 (07:32→20:57)
[2018-03-12] MEDS: mupirocin 2% ointment 22GM NS SCH (07:34)
[2018-03-12] MEDS: docusate sod 100mg capsule PO SCH ×2 (08:00→20:56)
[2018-03-12] MEDS: insulin Lispro (HumaLOG) vial - multi-dose SQ SCH ×3 (08:01→18:00)
[2018-03-12] MEDS: sodium chloride 0.45% 1,000 ML IV SCH (08:38)
[2018-03-12 09:35] LABS: ALBUMIN 3.3 G/DL (3.4-5.0); ANION GAP 14 (8-16); BLOOD UREA NITROGEN 33 MG/DL (7-18); CALCIUM 8.5 MG/DL (8.5-10.1); CHLORIDE 112 MMOL/L (99-107); CREATININE 1.94 MG/DL (0.40-0.90); GLUCOSE 136 MG/DL (70-104); MAGNESIUM 2.5 MG/DL (1.5-2.4); PHOSPHORUS 3.8 MG/DL (2.3-4.5); POTASSIUM 4.3 MMOL/L (3.5-5.1); SODIUM 146 MMOL/L (135-145); eGFR 25 ML/MIN
[2018-03-12 18:00] LABS: ALBUMIN 3.3 G/DL (3.4-5.0); ANION GAP 15 (8-16); BLOOD UREA NITROGEN 39 MG/DL (7-18); BUN/CREATININE RATIO 18.1 (6.6-38.0); CALCIUM 8.4 MG/DL (8.5-10.1); CHLORIDE 111 MMOL/L (99-107); CREATININE 2.16 MG/DL (0.40-0.90); GLUCOSE 149 MG/DL (70-104); MAGNESIUM 2.5 MG/DL (1.5-2.4); PHOSPHORUS 3.9 MG/DL (2.3-4.5); POTASSIUM 4.5 MMOL/L (3.5-5.1); SODIUM 145 MMOL/L (135-145); eGFR 22 ML/MIN
[2018-03-12 23:51] LABS: ANION GAP 15 (8-16); BLOOD UREA NITROGEN 43 MG/DL (7-18); BUN/CREATININE RATIO 18.8 (6.6-38.0); CALCIUM 8.1 MG/DL (8.5-10.1); CHLORIDE 111 MMOL/L (99-107); CREATININE 2.29 MG/DL (0.40-0.90); GLUCOSE 139 MG/DL (70-104); MAGNESIUM 2.6 MG/DL (1.5-2.4); PHOSPHORUS 4.2 MG/DL (2.3-4.5); POTASSIUM 4.6 MMOL/L (3.5-5.1); SODIUM 145 MMOL/L (135-145); TOTAL CARBON DIOXIDE 19.4 MMOL/L (24-32); eGFR 20 ML/MIN
[2018-03-13] VITALS (24 sets, daily range): BP systolic 90–166; BP diastolic 44–80
[2018-03-13] MEDS: DOPamine 400mg/D5W 250ml 250 ML IV PRN ×2 (01:18→15:03)
[2018-03-13 03:50] LABS: ABG BASE EXCESS -2.7 mmol/L (-2.0-3.0); ABG HCO3 20.7 mmol/L (22.0-26.0); ABG OXYGEN SATURATION 97.2 % (95-98); ABG PCO2 (T) 31.1 mmHg (32.0-45.0); ABG PH (T) 7.442 (7.350-7.450); ABG PO2 (T) 104.3 mmHg (83-108); FCOHb 0.2 % (0.5-1.5); FMetHb 0.3 % (0.3-1.12); FO2Hb 96.7 % (94-100); MINUTE VOLUME 7 L/min; PATIENT TEMPERATURE 37.3; PEEP 5 cm H2O; RESPIRATORY RATE 10 b/min; RESPIRATORY RATE (OBSERVED) 15 b/min; TIDAL VOLUME 450 mL; TOTAL HEMOGLOBIN 9.3 G/dl (12.0-16.0)
[2018-03-13 04:08] LABS: BASOPHILS % (AUTO) 0.1 % (0-1); EOSINOPHILS % (AUTO) 0 % (0-6); HEMATOCRIT 25.1 % (35.0-45.0); HEMOGLOBIN 8.8 g/dl (12.0-16.0); LYMPHOCYTES # (AUTO) 0.7 X10'3 (1.1-4.8); LYMPHOCYTES % (AUTO) 4.7 % (21-51); MEAN CORPUSCULAR HEMOGLOBIN 31.1 PG (27.0-31.0); MEAN CORPUSCULAR HGB CONC 34.8 % (33.0-36.5); MEAN CORPUSCULAR VOLUME 89.4 FL (78-98); MONOCYTES # (AUTO) 0.7 X10'3 (0-0.9); MONOCYTES % (AUTO) 4.8 % (2-12); NEUTROPHILS # (AUTO) 14.1 X10'3 (1.8-7.7); NEUTROPHILS % (AUTO) 90.4 % (42-75); PLATELET COUNT 73 X10'3 (140-440); RED BLOOD COUNT 2.81 X10'6 (4.20-5.60); RED CELL DISTRIBUTION WIDTH 16.5 % (11.5-14.5); WHITE BLOOD COUNT 15.6 X10'3 (4.5-11.0)
[2018-03-13 04:23] LABS: ALANINE AMINOTRANSFERASE 66 U/L (12-78); ALBUMIN/GLOBULIN RATIO 1.4 (1.1-1.5); ALKALINE PHOSPHATASE 66 IU/L (46-116); ANION GAP 12 (8-16); ASPARTATE AMINO TRANSFERASE 165 U/L (10-37); BILIRUBIN,TOTAL 0.7 MG/DL (0.1-1.0); BLOOD UREA NITROGEN 51 MG/DL (7-18); BUN/CREATININE RATIO 19.5 (6.6-38.0); CALCIUM 8.1 MG/DL (8.5-10.1); CHLORIDE 111 MMOL/L (99-107); CREATININE 2.61 MG/DL (0.40-0.90); GLUCOSE 136 MG/DL (70-104); MAGNESIUM 2.6 MG/DL (1.5-2.4); PHOSPHORUS 4.4 MG/DL (2.3-4.5); POTASSIUM 4.6 MMOL/L (3.5-5.1); SODIUM 144 MMOL/L (135-145); TOTAL CARBON DIOXIDE 20.8 MMOL/L (24-32); TOTAL PROTEIN 5.2 G/DL (6.4-8.2); eGFR 18 ML/MIN
[2018-03-13] MEDS: docusate sod 100mg capsule PO SCH ×2 (08:00→20:04)
[2018-03-13] MEDS: insulin Lispro (HumaLOG) vial - multi-dose SQ SCH ×3 (09:00→18:00)
[2018-03-13] MEDS: metoprolol tartrate 12.5mg (1/2 tablet) PO SCH ×2 (09:21→20:04)
[2018-03-13] MEDS: aspirin 325mg tablet, delayed-release (Ecotrin) PO SCH (09:21)
[2018-03-13] MEDS: lactobacillus rhamnosus 10,000 MMU CELLS/CAPSULE PO SCH ×2 (09:21→20:04)
[2018-03-13] MEDS: pantoprazole 40mg Tablet.DR PO SCH (09:21)
[2018-03-13] MEDS: mineral oil/petrolatum ophthal oint EACHEYE SCH ×3 (09:22→20:04)
[2018-03-13] MEDS: atorvastatin 10mg tablet PO SCH (09:22)
[2018-03-13] MEDS: insulin regular, human inj. 100 UNITS in normal saline 100ml IV soln 100 ML IV SCH ×4 (11:06→15:11)
[2018-03-13 12:33] LABS: ALBUMIN 2.9 G/DL (3.4-5.0); ANION GAP 12 (8-16); BLOOD UREA NITROGEN 61 MG/DL (7-18); BUN/CREATININE RATIO 21.2 (6.6-38.0); CALCIUM 8.1 MG/DL (8.5-10.1); CHLORIDE 112 MMOL/L (99-107); CREATININE 2.88 MG/DL (0.40-0.90); GLUCOSE 131 MG/DL (70-104); MAGNESIUM 2.8 MG/DL (1.5-2.4); PHOSPHORUS 4.9 MG/DL (2.3-4.5); POTASSIUM 4.4 MMOL/L (3.5-5.1); SODIUM 144 MMOL/L (135-145); TOTAL CARBON DIOXIDE 20.3 MMOL/L (24-32); eGFR 16 ML/MIN
[2018-03-13] MEDS: DOBUTamine-DoBUTrex 500mg/D5W 250 ML IV SCH (15:03)
[2018-03-13] MEDS: furosemide inj 100 ML IV SCH (15:05)
[2018-03-13] MEDS: sodium chloride 0.45% 1,000 ML IV SCH (15:27)
[2018-03-13] MEDS: morphine 4 MG/ML inj SYRINge IV PRN ×2 (16:23→17:03)
[2018-03-13 17:42] LABS: ANION GAP 15 (8-16); BLOOD UREA NITROGEN 67 MG/DL (7-18); BUN/CREATININE RATIO 22.9 (6.6-38.0); CHLORIDE 109 MMOL/L (99-107); CREATININE 2.92 MG/DL (0.40-0.90); GLUCOSE 129 MG/DL (70-104); MAGNESIUM 2.7 MG/DL (1.5-2.4); PHOSPHORUS 4.9 MG/DL (2.3-4.5); POTASSIUM 4.4 MMOL/L (3.5-5.1); SODIUM 144 MMOL/L (135-145); TOTAL CARBON DIOXIDE 20.3 MMOL/L (24-32); eGFR 15 ML/MIN
[2018-03-13] MEDS ORDERED: insulin Lispro (HumaLOG) vial - multi-dose SQ SCH (19:15)
[2018-03-13] MEDS ORDERED: dextrose ORAL solution 15 GM/59 ML bottle PO PRN ×2 (19:15)
[2018-03-13] MEDS ORDERED: glucagon, human recombinant 1mg kit SUBCUT PRN (19:15)
[2018-03-13] MEDS ORDERED: dextrose 50%-water 50ml dispensing syringe IV PRN ×2 (19:15)
[2018-03-13] MEDS: insulin glargine (Lantus) pen - multi-dose SQ SCH (21:00)
[2018-03-13 22:00] LABS: ANION GAP 13 (8-16); BLOOD UREA NITROGEN 72 MG/DL (7-18); CALCIUM 7.9 MG/DL (8.5-10.1); CHLORIDE 110 MMOL/L (99-107); CREATININE 2.88 MG/DL (0.40-0.90); GLUCOSE 123 MG/DL (70-104); MAGNESIUM 2.8 MG/DL (1.5-2.4); PHOSPHORUS 5.2 MG/DL (2.3-4.5); POTASSIUM 4.2 MMOL/L (3.5-5.1); SODIUM 144 MMOL/L (135-145); TOTAL CARBON DIOXIDE 21.3 MMOL/L (24-32); eGFR 16 ML/MIN
[2018-03-14] VITALS (24 sets, daily range): BP systolic 111–159; BP diastolic 42–84
[2018-03-14] MEDS: mineral oil/petrolatum ophthal oint EACHEYE SCH ×4 (02:22→20:00)
[2018-03-14 03:17] LABS: BASOPHILS % (AUTO) 0 % (0-1); EOSINOPHILS % (AUTO) 0 % (0-6); HEMATOCRIT 25.8 % (35.0-45.0); HEMOGLOBIN 8.9 g/dl (12.0-16.0); LYMPHOCYTES # (AUTO) 0.8 X10'3 (1.1-4.8); LYMPHOCYTES % (AUTO) 6.4 % (21-51); MEAN CORPUSCULAR HEMOGLOBIN 31.1 PG (27.0-31.0); MEAN CORPUSCULAR HGB CONC 34.7 % (33.0-36.5); MEAN CORPUSCULAR VOLUME 89.8 FL (78-98); MEAN PLATELET VOLUME 8.9 FL (7.4-10.4); MONOCYTES # (AUTO) 0.7 X10'3 (0-0.9); MONOCYTES % (AUTO) 5.4 % (2-12); NEUTROPHILS # (AUTO) 11.6 X10'3 (1.8-7.7); NEUTROPHILS % (AUTO) 88.2 % (42-75); PLATELET COUNT 86 X10'3 (140-440); RED BLOOD COUNT 2.87 X10'6 (4.20-5.60); RED CELL DISTRIBUTION WIDTH 16.3 % (11.5-14.5); WHITE BLOOD COUNT 13.2 X10'3 (4.5-11.0)
[2018-03-14 03:31] LABS: ALANINE AMINOTRANSFERASE 54 U/L (12-78); ALBUMIN/GLOBULIN RATIO 1.3 (1.1-1.5); ALKALINE PHOSPHATASE 70 IU/L (46-116); ANION GAP 14 (8-16); ASPARTATE AMINO TRANSFERASE 99 U/L (10-37); BILIRUBIN,TOTAL 0.7 MG/DL (0.1-1.0); BLOOD UREA NITROGEN 76 MG/DL (7-18); BUN/CREATININE RATIO 26.1 (6.6-38.0); CALCIUM 7.9 MG/DL (8.5-10.1); CHLORIDE 109 MMOL/L (99-107); CREATININE 2.91 MG/DL (0.40-0.90); GLUCOSE 123 MG/DL (70-104); MAGNESIUM 2.8 MG/DL (1.5-2.4); PHOSPHORUS 5.3 MG/DL (2.3-4.5); POTASSIUM 4.2 MMOL/L (3.5-5.1); SODIUM 143 MMOL/L (135-145); TOTAL CARBON DIOXIDE 19.6 MMOL/L (24-32); TOTAL PROTEIN 5.3 G/DL (6.4-8.2); eGFR 15 ML/MIN
[2018-03-14 05:46] LABS: ABG BASE EXCESS -4.2 mmol/L (-2.0-3.0); ABG HCO3 19.3 mmol/L (22.0-26.0); ABG OXYGEN SATURATION 95.6 % (95-98); ABG PCO2 (T) 28.7 mmHg (32.0-45.0); ABG PH (T) 7.443 (7.350-7.450); ABG PO2 (T) 84.2 mmHg (83-108); FCOHb 0.3 % (0.5-1.5); FMetHb 0.1 % (0.3-1.12); FO2Hb 95.2 % (94-100); MINUTE VOLUME 9 L/min; PATIENT TEMPERATURE 36.2; PEEP 5 cm H2O; RESPIRATORY RATE (OBSERVED) 23 b/min; TOTAL HEMOGLOBIN 9.6 G/dl (12.0-16.0)
[2018-03-14] MEDS: docusate sod 100mg capsule PO SCH ×2 (08:00→20:18)
[2018-03-14] MEDS: metoprolol tartrate 12.5mg (1/2 tablet) PO SCH ×2 (08:00→20:17)
[2018-03-14] MEDS: atorvastatin 10mg tablet PO SCH (08:48)
[2018-03-14] MEDS: aspirin 325mg tablet, delayed-release (Ecotrin) PO SCH (08:48)
[2018-03-14] MEDS: lactobacillus rhamnosus 10,000 MMU CELLS/CAPSULE PO SCH ×2 (08:48→20:18)
[2018-03-14] MEDS: pantoprazole 40mg Tablet.DR PO SCH (08:50)
[2018-03-14 09:08] LABS: ALBUMIN 2.9 G/DL (3.4-5.0); ANION GAP 16 (8-16); BLOOD UREA NITROGEN 78 MG/DL (7-18); BUN/CREATININE RATIO 28.4 (6.6-38.0); CALCIUM 7.7 MG/DL (8.5-10.1); CHLORIDE 109 MMOL/L (99-107); CREATININE 2.75 MG/DL (0.40-0.90); GLUCOSE 122 MG/DL (70-104); MAGNESIUM 2.7 MG/DL (1.5-2.4); PHOSPHORUS 5.3 MG/DL (2.3-4.5); POTASSIUM 4.1 MMOL/L (3.5-5.1); SODIUM 144 MMOL/L (135-145); TOTAL CARBON DIOXIDE 19.1 MMOL/L (24-32); eGFR 17 ML/MIN
[2018-03-14] MEDS: potassium Cl 20mEq/100mL bag 100 ML IV PRN (09:12)
[2018-03-14] MEDS ORDERED: racepinephrine 11.25mg/0.5ml nebule NEB PRN (09:55)
[2018-03-14] MEDS ORDERED: ipratropium/albuterol 3ml nebule NEB PRN (09:55)
[2018-03-14] MEDS: ipratropium/albuterol 3ml nebule NEB SCH ×2 (15:32→20:47)
[2018-03-14 15:43] LABS: ALBUMIN 3.1 G/DL (3.4-5.0); ANION GAP 15 (8-16); BLOOD UREA NITROGEN 82 MG/DL (7-18); BUN/CREATININE RATIO 30.3 (6.6-38.0); CHLORIDE 108 MMOL/L (99-107); CREATININE 2.71 MG/DL (0.40-0.90); GLUCOSE 116 MG/DL (70-104); PHOSPHORUS 5.5 MG/DL (2.3-4.5); POTASSIUM 4.4 MMOL/L (3.5-5.1); SODIUM 143 MMOL/L (135-145); TOTAL CARBON DIOXIDE 19.9 MMOL/L (24-32); eGFR 17 ML/MIN
[2018-03-14] MEDS: sodium chloride 0.45% 1,000 ML IV SCH (17:25)
[2018-03-14] MEDS: insulin glargine (Lantus) pen - multi-dose SQ SCH (20:13)
[2018-03-14 21:34] LABS: ALBUMIN 3.2 G/DL (3.4-5.0); ANION GAP 17 (8-16); BLOOD UREA NITROGEN 83 MG/DL (7-18); BUN/CREATININE RATIO 30.7 (6.6-38.0); CALCIUM 8.3 MG/DL (8.5-10.1); CHLORIDE 108 MMOL/L (99-107); GLUCOSE 168 MG/DL (70-104); PHOSPHORUS 5.7 MG/DL (2.3-4.5); POTASSIUM 4.1 MMOL/L (3.5-5.1); SODIUM 145 MMOL/L (135-145); TOTAL CARBON DIOXIDE 20.1 MMOL/L (24-32); eGFR 17 ML/MIN
[2018-03-15] VITALS (24 sets, daily range): BP systolic 117–139; BP diastolic 60–80
[2018-03-15] MEDS: mineral oil/petrolatum ophthal oint EACHEYE SCH ×4 (01:56→20:00)
[2018-03-15 02:54] LABS: BASOPHILS % (AUTO) 0.3 % (0-1); EOSINOPHILS % (AUTO) 0 % (0-6); HEMATOCRIT 27.7 % (35.0-45.0); HEMOGLOBIN 9.4 g/dl (12.0-16.0); LYMPHOCYTES # (AUTO) 0.7 X10'3 (1.1-4.8); LYMPHOCYTES % (AUTO) 5.8 % (21-51); MEAN CORPUSCULAR HEMOGLOBIN 30.9 PG (27.0-31.0); MEAN PLATELET VOLUME 8.4 FL (7.4-10.4); MONOCYTES # (AUTO) 0.8 X10'3 (0-0.9); MONOCYTES % (AUTO) 6.3 % (2-12); NEUTROPHILS % (AUTO) 87.6 % (42-75); PLATELET COUNT 104 X10'3 (140-440); RED BLOOD COUNT 3.04 X10'6 (4.20-5.60); RED CELL DISTRIBUTION WIDTH 15.6 % (11.5-14.5); WHITE BLOOD COUNT 12.5 X10'3 (4.5-11.0)
[2018-03-15] MEDS: ipratropium/albuterol 3ml nebule NEB SCH ×4 (02:54→21:14)
[2018-03-15 03:02] LABS: INR 1.3 INR; PROTHROMBIN TIME 13.4 SECONDS (9.0-12.0)
[2018-03-15 03:09] LABS: ALANINE AMINOTRANSFERASE 51 U/L (12-78); ALBUMIN 3.1 G/DL (3.4-5.0); ALBUMIN/GLOBULIN RATIO 1.2 (1.1-1.5); ALKALINE PHOSPHATASE 96 IU/L (46-116); ANION GAP 15 (8-16); ASPARTATE AMINO TRANSFERASE 69 U/L (10-37); BILIRUBIN,TOTAL 0.8 MG/DL (0.1-1.0); BLOOD UREA NITROGEN 81 MG/DL (7-18); BUN/CREATININE RATIO 33.2 (6.6-38.0); CALCIUM 8.5 MG/DL (8.5-10.1); CHLORIDE 109 MMOL/L (99-107); CREATININE 2.44 MG/DL (0.40-0.90); GLUCOSE 129 MG/DL (70-104); PHOSPHORUS 5.7 MG/DL (2.3-4.5); POTASSIUM 4.2 MMOL/L (3.5-5.1); SODIUM 145 MMOL/L (135-145); TOTAL PROTEIN 5.6 G/DL (6.4-8.2); eGFR 19 ML/MIN
[2018-03-15] MEDS: potassium Cl 20mEq/100mL bag 100 ML IV PRN ×2 (05:32→10:54)
[2018-03-15] MEDS: DOBUTamine-DoBUTrex 500mg/D5W 250 ML IV SCH (06:51)
[2018-03-15] MEDS: aspirin 325mg tablet, delayed-release (Ecotrin) PO SCH (08:14)
[2018-03-15] MEDS: pantoprazole 40mg Tablet.DR PO SCH (08:14)
[2018-03-15] MEDS: atorvastatin 10mg tablet PO SCH (08:14)
[2018-03-15] MEDS: docusate sod 100mg capsule PO SCH ×2 (08:14→20:10)
[2018-03-15] MEDS: metoprolol tartrate 12.5mg (1/2 tablet) PO SCH ×2 (08:14→20:10)
[2018-03-15] MEDS: lactobacillus rhamnosus 10,000 MMU CELLS/CAPSULE PO SCH ×2 (08:14→20:10)
[2018-03-15 09:32] LABS: ALBUMIN 3.2 G/DL (3.4-5.0); ANION GAP 13 (8-16); BLOOD UREA NITROGEN 82 MG/DL (7-18); BUN/CREATININE RATIO 35.5 (6.6-38.0); CALCIUM 8.3 MG/DL (8.5-10.1); CHLORIDE 109 MMOL/L (99-107); CREATININE 2.31 MG/DL (0.40-0.90); GLUCOSE 154 MG/DL (70-104); PHOSPHORUS 5.3 MG/DL (2.3-4.5); POTASSIUM 4.3 MMOL/L (3.5-5.1); SODIUM 145 MMOL/L (135-145); TOTAL CARBON DIOXIDE 23.1 MMOL/L (24-32); eGFR 20 ML/MIN
[2018-03-15] MEDS: Protein Smoothie (high protein) 240ml (8oz) cup PO SCH ×2 (13:00→18:00)
[2018-03-15 15:56] LABS: ALBUMIN 2.9 G/DL (3.4-5.0); ANION GAP 12 (8-16); BLOOD UREA NITROGEN 77 MG/DL (7-18); BUN/CREATININE RATIO 34.2 (6.6-38.0); CALCIUM 7.6 MG/DL (8.5-10.1); CHLORIDE 106 MMOL/L (99-107); CREATININE 2.25 MG/DL (0.40-0.90); GLUCOSE 148 MG/DL (70-104); PHOSPHORUS 4.9 MG/DL (2.3-4.5); POTASSIUM 4.7 MMOL/L (3.5-5.1); SODIUM 140 MMOL/L (135-145); TOTAL CARBON DIOXIDE 22.2 MMOL/L (24-32); eGFR 21 ML/MIN
[2018-03-15] MEDS: insulin glargine (Lantus) pen - multi-dose SQ SCH (21:00)
[2018-03-15 21:32] LABS: ALBUMIN 3.1 G/DL (3.4-5.0); ANION GAP 11 (8-16); BLOOD UREA NITROGEN 79 MG/DL (7-18); BUN/CREATININE RATIO 37.8 (6.6-38.0); CALCIUM 8.1 MG/DL (8.5-10.1); CHLORIDE 109 MMOL/L (99-107); CREATININE 2.09 MG/DL (0.40-0.90); GLUCOSE 140 MG/DL (70-104); PHOSPHORUS 5.1 MG/DL (2.3-4.5); POTASSIUM 4.1 MMOL/L (3.5-5.1); SODIUM 143 MMOL/L (135-145); TOTAL CARBON DIOXIDE 23.4 MMOL/L (24-32); eGFR 23 ML/MIN
[2018-03-16] VITALS (23 sets, daily range): BP systolic 114–156; BP diastolic 56–84
[2018-03-16] MEDS: ipratropium/albuterol 3ml nebule NEB SCH ×4 (03:11→20:23)
[2018-03-16 03:49] LABS: BASOPHILS % (AUTO) 0 % (0-1); EOSINOPHILS % (AUTO) 0.3 % (0-6); HEMOGLOBIN 9.2 g/dl (12.0-16.0); LYMPHOCYTES # (AUTO) 0.8 X10'3 (1.1-4.8); LYMPHOCYTES % (AUTO) 7.3 % (21-51); MEAN CORPUSCULAR HEMOGLOBIN 30.9 PG (27.0-31.0); MEAN CORPUSCULAR VOLUME 90.8 FL (78-98); MEAN PLATELET VOLUME 8.2 FL (7.4-10.4); MONOCYTES # (AUTO) 0.7 X10'3 (0-0.9); MONOCYTES % (AUTO) 6.3 % (2-12); NEUTROPHILS # (AUTO) 9.9 X10'3 (1.8-7.7); NEUTROPHILS % (AUTO) 86.1 % (42-75); PLATELET COUNT 126 X10'3 (140-440); RED BLOOD COUNT 2.98 X10'6 (4.20-5.60); WHITE BLOOD COUNT 11.5 X10'3 (4.5-11.0)
[2018-03-16 04:02] LABS: ANION GAP 11 (8-16); BLOOD UREA NITROGEN 76 MG/DL (7-18); BUN/CREATININE RATIO 40.9 (6.6-38.0); CHLORIDE 111 MMOL/L (99-107); CREATININE 1.86 MG/DL (0.40-0.90); GLUCOSE 122 MG/DL (70-104); PHOSPHORUS 5.1 MG/DL (2.3-4.5); POTASSIUM 4.1 MMOL/L (3.5-5.1); SODIUM 146 MMOL/L (135-145); eGFR 26 ML/MIN
[2018-03-16] MEDS: morphine 4 MG/ML inj SYRINge IV PRN (04:47)
[2018-03-16] MEDS: potassium Cl 20mEq/100mL bag 100 ML IV PRN (05:46)
[2018-03-16] MEDS: Protein Smoothie (high protein) 240ml (8oz) cup PO SCH ×3 (08:00→18:00)
[2018-03-16] MEDS: atorvastatin 10mg tablet PO SCH (08:13)
[2018-03-16] MEDS: pantoprazole 40mg Tablet.DR PO SCH (08:13)
[2018-03-16] MEDS: lactobacillus rhamnosus 10,000 MMU CELLS/CAPSULE PO SCH ×2 (08:13→19:38)
[2018-03-16] MEDS: metoprolol tartrate 12.5mg (1/2 tablet) PO SCH ×2 (08:13→19:38)
[2018-03-16] MEDS: docusate sod 100mg capsule PO SCH ×2 (08:14→19:38)
[2018-03-16] MEDS: aspirin 325mg tablet, delayed-release (Ecotrin) PO SCH (08:15)
[2018-03-16] MEDS: DOBUTamine-DoBUTrex 500mg/D5W 250 ML IV SCH (09:39)
[2018-03-16] MEDS: sodium chloride 0.45% 1,000 ML IV SCH ×2 (13:53→23:11)
[2018-03-16] MEDS: insulin glargine (Lantus) pen - multi-dose SQ SCH (21:00)
[2018-03-16 21:20] LABS: ANION GAP 9 (8-16); BLOOD UREA NITROGEN 63 MG/DL (7-18); BUN/CREATININE RATIO 42.9 (6.6-38.0); CALCIUM 8.2 MG/DL (8.5-10.1); CHLORIDE 111 MMOL/L (99-107); CREATININE 1.47 MG/DL (0.40-0.90); GLUCOSE 149 MG/DL (70-104); PHOSPHORUS 3.8 MG/DL (2.3-4.5); POTASSIUM 4.2 MMOL/L (3.5-5.1); SODIUM 145 MMOL/L (135-145); TOTAL CARBON DIOXIDE 25.2 MMOL/L (24-32); eGFR 34 ML/MIN
[2018-03-17] VITALS (23 sets, daily range): BP systolic 109–161; BP diastolic 51–90
[2018-03-17 03:35] LABS: BASOPHILS % (AUTO) 0 % (0-1); EOSINOPHILS # (AUTO) 0.2 X10'3 (0-0.9); EOSINOPHILS % (AUTO) 1.9 % (0-6); HEMATOCRIT 26.9 % (35.0-45.0); HEMOGLOBIN 9.2 g/dl (12.0-16.0); LYMPHOCYTES # (AUTO) 0.8 X10'3 (1.1-4.8); LYMPHOCYTES % (AUTO) 6.9 % (21-51); MEAN CORPUSCULAR HEMOGLOBIN 31.2 PG (27.0-31.0); MEAN CORPUSCULAR HGB CONC 34.3 % (33.0-36.5); MEAN CORPUSCULAR VOLUME 90.9 FL (78-98); MEAN PLATELET VOLUME 7.4 FL (7.4-10.4); MONOCYTES # (AUTO) 0.8 X10'3 (0-0.9); MONOCYTES % (AUTO) 6.7 % (2-12); NEUTROPHILS # (AUTO) 10.2 X10'3 (1.8-7.7); NEUTROPHILS % (AUTO) 84.5 % (42-75); PLATELET COUNT 136 X10'3 (140-440); RED BLOOD COUNT 2.96 X10'6 (4.20-5.60); RED CELL DISTRIBUTION WIDTH 15.9 % (11.5-14.5); WHITE BLOOD COUNT 12.1 X10'3 (4.5-11.0)
[2018-03-17 03:48] LABS: ALBUMIN 2.8 G/DL (3.4-5.0); ANION GAP 8 (8-16); BLOOD UREA NITROGEN 56 MG/DL (7-18); BUN/CREATININE RATIO 41.2 (6.6-38.0); CALCIUM 7.7 MG/DL (8.5-10.1); CHLORIDE 112 MMOL/L (99-107); CREATININE 1.36 MG/DL (0.40-0.90); GLUCOSE 112 MG/DL (70-104); MAGNESIUM 2.7 MG/DL (1.5-2.4); POTASSIUM 4.2 MMOL/L (3.5-5.1); SODIUM 146 MMOL/L (135-145); TOTAL CARBON DIOXIDE 25.7 MMOL/L (24-32); eGFR 37 ML/MIN
[2018-03-17] MEDS: metoprolol tartrate 12.5mg (1/2 tablet) PO SCH ×2 (08:07→19:34)
[2018-03-17] MEDS: docusate sod 100mg capsule PO SCH ×2 (08:08→19:34)
[2018-03-17] MEDS: atorvastatin 10mg tablet PO SCH (08:08)
[2018-03-17] MEDS: lactobacillus rhamnosus 10,000 MMU CELLS/CAPSULE PO SCH ×2 (08:08→19:34)
[2018-03-17] MEDS: aspirin 325mg tablet, delayed-release (Ecotrin) PO SCH (08:09)
[2018-03-17] MEDS: pantoprazole 40mg Tablet.DR PO SCH (08:09)
[2018-03-17] MEDS: Protein Smoothie (high protein) 240ml (8oz) cup PO SCH ×3 (08:13→18:00)
[2018-03-17] MEDS: ipratropium/albuterol 3ml nebule NEB SCH ×3 (09:23→20:10)
[2018-03-17] MEDS: insulin glargine (Lantus) pen - multi-dose SQ SCH (21:00)
[2018-03-17] MEDS: morphine 4 MG/ML inj SYRINge IV PRN (23:43)
[2018-03-18] VITALS (24 sets, daily range): BP systolic 123–179; BP diastolic 65–91
[2018-03-18] MEDS: ipratropium/albuterol 3ml nebule NEB SCH ×4 (03:23→20:04)
[2018-03-18 03:37] LABS: BASOPHILS % (AUTO) 0 % (0-1); EOSINOPHILS # (AUTO) 0.3 X10'3 (0-0.9); EOSINOPHILS % (AUTO) 2.2 % (0-6); HEMATOCRIT 28.3 % (35.0-45.0); HEMOGLOBIN 9.5 g/dl (12.0-16.0); LYMPHOCYTES # (AUTO) 0.8 X10'3 (1.1-4.8); LYMPHOCYTES % (AUTO) 5.8 % (21-51); MEAN CORPUSCULAR HEMOGLOBIN 31.2 PG (27.0-31.0); MEAN CORPUSCULAR HGB CONC 33.7 % (33.0-36.5); MEAN CORPUSCULAR VOLUME 92.6 FL (78-98); MEAN PLATELET VOLUME 7.3 FL (7.4-10.4); MONOCYTES # (AUTO) 0.9 X10'3 (0-0.9); MONOCYTES % (AUTO) 6.9 % (2-12); NEUTROPHILS # (AUTO) 11.4 X10'3 (1.8-7.7); NEUTROPHILS % (AUTO) 85.1 % (42-75); PLATELET COUNT 169 X10'3 (140-440); RED BLOOD COUNT 3.06 X10'6 (4.20-5.60); RED CELL DISTRIBUTION WIDTH 16.3 % (11.5-14.5); WHITE BLOOD COUNT 13.4 X10'3 (4.5-11.0)
[2018-03-18 04:01] LABS: ALANINE AMINOTRANSFERASE 48 U/L (12-78); ALBUMIN 2.9 G/DL (3.4-5.0); ALBUMIN/GLOBULIN RATIO 1.1 (1.1-1.5); ALKALINE PHOSPHATASE 82 IU/L (46-116); ANION GAP 10 (8-16); ASPARTATE AMINO TRANSFERASE 57 U/L (10-37); BLOOD UREA NITROGEN 39 MG/DL (7-18); BUN/CREATININE RATIO 38.6 (6.6-38.0); CALCIUM 8.2 MG/DL (8.5-10.1); CHLORIDE 113 MMOL/L (99-107); CREATININE 1.01 MG/DL (0.40-0.90); GLUCOSE 124 MG/DL (70-104); POTASSIUM 4.2 MMOL/L (3.5-5.1); SODIUM 148 MMOL/L (135-145); TOTAL CARBON DIOXIDE 25.4 MMOL/L (24-32); TOTAL PROTEIN 5.6 G/DL (6.4-8.2); eGFR 52 ML/MIN
[2018-03-18] MEDS: DOBUTamine-DoBUTrex 500mg/D5W 250 ML IV SCH (06:05)
[2018-03-18] MEDS: pantoprazole 40mg Tablet.DR PO SCH (08:09)
[2018-03-18] MEDS: atorvastatin 10mg tablet PO SCH (08:09)
[2018-03-18] MEDS: aspirin 325mg tablet, delayed-release (Ecotrin) PO SCH (08:09)
[2018-03-18] MEDS: docusate sod 100mg capsule PO SCH ×2 (08:10→19:36)
[2018-03-18] MEDS: metoprolol tartrate 12.5mg (1/2 tablet) PO SCH ×2 (08:10→19:36)
[2018-03-18] MEDS: lactobacillus rhamnosus 10,000 MMU CELLS/CAPSULE PO SCH ×2 (08:10→19:36)
[2018-03-18] MEDS: Protein Smoothie (high protein) 240ml (8oz) cup PO SCH ×3 (08:10→18:36)
[2018-03-18] MEDS: sodium chloride 0.45% 1,000 ML IV SCH (13:30)
[2018-03-18] MEDS: insulin glargine (Lantus) pen - multi-dose SQ SCH (20:21)
[2018-03-19] VITALS (24 sets, daily range): BP systolic 109–180; BP diastolic 57–92
[2018-03-19] MEDS: ipratropium/albuterol 3ml nebule NEB SCH ×4 (02:06→18:43)
[2018-03-19] MEDS: morphine 4 MG/ML inj SYRINge IV PRN (02:17)
[2018-03-19 03:51] LABS: BASOPHILS % (AUTO) 0.2 % (0-1); EOSINOPHILS # (AUTO) 0.3 X10'3 (0-0.9); EOSINOPHILS % (AUTO) 2.4 % (0-6); HEMATOCRIT 28.1 % (35.0-45.0); HEMOGLOBIN 9.4 g/dl (12.0-16.0); LYMPHOCYTES # (AUTO) 0.9 X10'3 (1.1-4.8); LYMPHOCYTES % (AUTO) 7.9 % (21-51); MEAN CORPUSCULAR HGB CONC 33.5 % (33.0-36.5); MEAN CORPUSCULAR VOLUME 92.5 FL (78-98); MEAN PLATELET VOLUME 7.2 FL (7.4-10.4); MONOCYTES # (AUTO) 0.8 X10'3 (0-0.9); MONOCYTES % (AUTO) 6.9 % (2-12); NEUTROPHILS # (AUTO) 9.4 X10'3 (1.8-7.7); NEUTROPHILS % (AUTO) 82.6 % (42-75); PLATELET COUNT 172 X10'3 (140-440); RED BLOOD COUNT 3.04 X10'6 (4.20-5.60); RED CELL DISTRIBUTION WIDTH 16.2 % (11.5-14.5); WHITE BLOOD COUNT 11.3 X10'3 (4.5-11.0)
[2018-03-19 03:58] LABS: ALANINE AMINOTRANSFERASE 45 U/L (12-78); ALBUMIN 2.9 G/DL (3.4-5.0); ALBUMIN/GLOBULIN RATIO 1.1 (1.1-1.5); ALKALINE PHOSPHATASE 75 IU/L (46-116); ANION GAP 9 (8-16); ASPARTATE AMINO TRANSFERASE 51 U/L (10-37); BILIRUBIN,TOTAL 1.1 MG/DL (0.1-1.0); BLOOD UREA NITROGEN 30 MG/DL (7-18); BUN/CREATININE RATIO 30.9 (6.6-38.0); CALCIUM 8.3 MG/DL (8.5-10.1); CHLORIDE 113 MMOL/L (99-107); CREATININE 0.97 MG/DL (0.40-0.90); GLUCOSE 119 MG/DL (70-104); MAGNESIUM 2.4 MG/DL (1.5-2.4); POTASSIUM 4.2 MMOL/L (3.5-5.1); SODIUM 148 MMOL/L (135-145); TOTAL PROTEIN 5.6 G/DL (6.4-8.2); eGFR 55 ML/MIN
[2018-03-19] MEDS: metoprolol tartrate 12.5mg (1/2 tablet) PO SCH (08:30)
[2018-03-19] MEDS: Protein Smoothie (high protein) 240ml (8oz) cup PO SCH ×3 (08:30→18:30)
[2018-03-19] MEDS: docusate sod 100mg capsule PO SCH ×2 (08:31→19:31)
[2018-03-19] MEDS: lactobacillus rhamnosus 10,000 MMU CELLS/CAPSULE PO SCH ×2 (08:31→19:31)
[2018-03-19] MEDS: aspirin 325mg tablet, delayed-release (Ecotrin) PO SCH (08:31)
[2018-03-19] MEDS: pantoprazole 40mg Tablet.DR PO SCH (08:31)
[2018-03-19] MEDS: atorvastatin 10mg tablet PO SCH (08:31)
[2018-03-19] MEDS ORDERED: metoprolol tartrate 1mg/ml inj IV ONE (16:00)
[2018-03-19] MEDS ORDERED: metoprolol tartrate 12.5mg (1/2 tablet) PO ONE (16:00)
[2018-03-19] MEDS: DOBUTamine-DoBUTrex 500mg/D5W 250 ML IV SCH (16:15)
[2018-03-19] MEDS ORDERED: lisinopril 10 MG tablet PO ONE (17:20)
[2018-03-19] MEDS ORDERED: hydrALAZINE 20mg/ml inj. IV PRN (17:20)
[2018-03-19 18:15] LABS: ABG BASE EXCESS 0.6 mmol/L (-2.0-3.0); ABG HCO3 24.2 mmol/L (22.0-26.0); ABG OXYGEN SATURATION 94.4 % (95-98); ABG PCO2 (T) 35.2 mmHg (32.0-45.0); ABG PH (T) 7.455 (7.350-7.450); ABG PO2 (T) 70.7 mmHg (83-108); ALLEN'S TEST Positive; FCOHb 0.3 % (0.5-1.5); FLOW 2 L/min; FMetHb 0.1 % (0.3-1.12); PATIENT TEMPERATURE 37.1; TOTAL HEMOGLOBIN 11.6 G/dl (12.0-16.0)
[2018-03-19] MEDS ORDERED: amLODIPine 5mg tablet PO ONE (18:15)
[2018-03-19] MEDS ORDERED: lisinopril 20mg tablet PO ONE (18:15)
[2018-03-19] MEDS ORDERED: furosemide 20 MG/2 ML vial IV ONE (18:15)
[2018-03-19] MEDS: metoprolol tartrate 25mg tablet PO SCH (19:30)
[2018-03-19] MEDS: insulin glargine (Lantus) pen - multi-dose SQ SCH (21:00)
[2018-03-20] VITALS (26 sets, daily range): BP systolic 107–166; BP diastolic 50–87
[2018-03-20] MEDS: ipratropium/albuterol 3ml nebule NEB SCH ×6 (00:47→22:31)
[2018-03-20 03:27] LABS: BASOPHILS % (AUTO) 0.1 % (0-1); EOSINOPHILS # (AUTO) 0.3 X10'3 (0-0.9); EOSINOPHILS % (AUTO) 2.8 % (0-6); HEMATOCRIT 29.7 % (35.0-45.0); HEMOGLOBIN 9.7 g/dl (12.0-16.0); LYMPHOCYTES # (AUTO) 0.8 X10'3 (1.1-4.8); LYMPHOCYTES % (AUTO) 6.9 % (21-51); MEAN CORPUSCULAR HEMOGLOBIN 30.6 PG (27.0-31.0); MEAN CORPUSCULAR HGB CONC 32.8 % (33.0-36.5); MEAN CORPUSCULAR VOLUME 93.3 FL (78-98); MEAN PLATELET VOLUME 7.1 FL (7.4-10.4); MONOCYTES # (AUTO) 0.8 X10'3 (0-0.9); MONOCYTES % (AUTO) 6.5 % (2-12); NEUTROPHILS # (AUTO) 10.1 X10'3 (1.8-7.7); NEUTROPHILS % (AUTO) 83.7 % (42-75); PLATELET COUNT 189 X10'3 (140-440); RED BLOOD COUNT 3.18 X10'6 (4.20-5.60); RED CELL DISTRIBUTION WIDTH 16.3 % (11.5-14.5)
[2018-03-20 03:41] LABS: ALANINE AMINOTRANSFERASE 46 U/L (12-78); ALBUMIN 2.9 G/DL (3.4-5.0); ALKALINE PHOSPHATASE 69 IU/L (46-116); ANION GAP 7 (8-16); ASPARTATE AMINO TRANSFERASE 46 U/L (10-37); BILIRUBIN,TOTAL 1.1 MG/DL (0.1-1.0); BLOOD UREA NITROGEN 28 MG/DL (7-18); BUN/CREATININE RATIO 29.5 (6.6-38.0); CALCIUM 8.6 MG/DL (8.5-10.1); CHLORIDE 113 MMOL/L (99-107); CREATININE 0.95 MG/DL (0.40-0.90); GLUCOSE 109 MG/DL (70-104); MAGNESIUM 2.1 MG/DL (1.5-2.4); SODIUM 149 MMOL/L (135-145); TOTAL CARBON DIOXIDE 28.9 MMOL/L (24-32); TOTAL PROTEIN 5.7 G/DL (6.4-8.2); eGFR 56 ML/MIN
[2018-03-20] MEDS: enoxaparin 30mg/0.3ml syringe SUBCUT SCH (07:27)
[2018-03-20] MEDS: atorvastatin 10mg tablet PO SCH (07:28)
[2018-03-20] MEDS: aspirin 325mg tablet, delayed-release (Ecotrin) PO SCH (07:28)
[2018-03-20] MEDS: lisinopril 20mg tablet PO SCH (07:28)
[2018-03-20] MEDS: lactobacillus rhamnosus 10,000 MMU CELLS/CAPSULE PO SCH ×2 (07:29→19:48)
[2018-03-20] MEDS: metoprolol tartrate 25mg tablet PO SCH ×2 (07:29→19:48)
[2018-03-20] MEDS: pantoprazole 40mg Tablet.DR PO SCH (07:29)
[2018-03-20] MEDS: docusate sod 100mg capsule PO SCH ×2 (07:29→19:49)
[2018-03-20] MEDS: amLODIPine 5mg tablet PO SCH (07:29)
[2018-03-20] MEDS ORDERED: lisinopril 10 MG tablet PO SCH (08:00)
[2018-03-20] MEDS: Protein Smoothie (high protein) 240ml (8oz) cup PO SCH ×3 (08:51→18:54)
[2018-03-20] MEDS: potassium Cl 20mEq/100mL bag 100 ML IV PRN (08:52)
[2018-03-20] MEDS ORDERED: magnesium citrate 296ml oral solution PO ONE (09:40)
[2018-03-20] MEDS: sodium chloride 0.45% 1,000 ML IV SCH (13:30)
[2018-03-20] MEDS ORDERED: LIDOcaine 1%/PF (10mg/ml) 5ml vial ONE (14:00)
[2018-03-20] MEDS: morphine 4 MG/ML inj SYRINge IV PRN (14:41)
[2018-03-20] MEDS: insulin glargine (Lantus) pen - multi-dose SQ SCH (20:49)
[2018-03-21] VITALS (24 sets, daily range): BP systolic 89–126; BP diastolic 42–62
[2018-03-21] MEDS: ipratropium/albuterol 3ml nebule NEB SCH ×6 (02:30→22:33)
[2018-03-21 03:46] LABS: BASOPHILS % (AUTO) 0 % (0-1); EOSINOPHILS # (AUTO) 0.3 X10'3 (0-0.9); EOSINOPHILS % (AUTO) 2.1 % (0-6); HEMATOCRIT 27.6 % (35.0-45.0); HEMOGLOBIN 9.4 g/dl (12.0-16.0); LYMPHOCYTES % (AUTO) 7.1 % (21-51); MEAN CORPUSCULAR HEMOGLOBIN 31.6 PG (27.0-31.0); MEAN CORPUSCULAR HGB CONC 34.2 % (33.0-36.5); MEAN CORPUSCULAR VOLUME 92.2 FL (78-98); MONOCYTES # (AUTO) 0.7 X10'3 (0-0.9); NEUTROPHILS # (AUTO) 12.1 X10'3 (1.8-7.7); NEUTROPHILS % (AUTO) 85.8 % (42-75); PLATELET COUNT 185 X10'3 (140-440); RED BLOOD COUNT 2.99 X10'6 (4.20-5.60); RED CELL DISTRIBUTION WIDTH 16.6 % (11.5-14.5); WHITE BLOOD COUNT 14.1 X10'3 (4.5-11.0)
[2018-03-21 04:00] LABS: ALANINE AMINOTRANSFERASE 35 U/L (12-78); ALBUMIN 2.4 G/DL (3.4-5.0); ALKALINE PHOSPHATASE 59 IU/L (46-116); ANION GAP 6 (8-16); ASPARTATE AMINO TRANSFERASE 34 U/L (10-37); BILIRUBIN,TOTAL 0.9 MG/DL (0.1-1.0); BLOOD UREA NITROGEN 29 MG/DL (7-18); BUN/CREATININE RATIO 28.4 (6.6-38.0); CALCIUM 8.1 MG/DL (8.5-10.1); CHLORIDE 111 MMOL/L (99-107); CREATININE 1.02 MG/DL (0.40-0.90); GLUCOSE 117 MG/DL (70-104); MAGNESIUM 2.5 MG/DL (1.5-2.4); POTASSIUM 4.6 MMOL/L (3.5-5.1); SODIUM 145 MMOL/L (135-145); TOTAL CARBON DIOXIDE 28.5 MMOL/L (24-32); TOTAL PROTEIN 4.9 G/DL (6.4-8.2); eGFR 52 ML/MIN
[2018-03-21 04:14] LABS: PHOSPHORUS 3.4 MG/DL (2.3-4.5)
[2018-03-21] MEDS: DOBUTamine-DoBUTrex 500mg/D5W 250 ML IV SCH (04:41)
[2018-03-21] MEDS: amLODIPine 5mg tablet PO SCH (09:14)
[2018-03-21] MEDS: lisinopril 20mg tablet PO SCH (09:14)
[2018-03-21] MEDS: metoprolol tartrate 25mg tablet PO SCH ×2 (09:14→19:45)
[2018-03-21] MEDS: docusate sod 100mg capsule PO SCH ×2 (09:14→19:45)
[2018-03-21] MEDS: enoxaparin 30mg/0.3ml syringe SUBCUT SCH (09:15)
[2018-03-21] MEDS: Protein Smoothie (high protein) 240ml (8oz) cup PO SCH ×3 (09:15→18:51)
[2018-03-21] MEDS: pantoprazole 40mg Tablet.DR PO SCH (09:15)
[2018-03-21] MEDS: atorvastatin 10mg tablet PO SCH (09:16)
[2018-03-21] MEDS: lactobacillus rhamnosus 10,000 MMU CELLS/CAPSULE PO SCH ×2 (09:16→19:45)
[2018-03-21] MEDS: aspirin 325mg tablet, delayed-release (Ecotrin) PO SCH (09:16)
[2018-03-21] MEDS: insulin glargine (Lantus) pen - multi-dose SQ SCH (21:00)
[2018-03-22] VITALS (20 sets, daily range): BP systolic 100–149; BP diastolic 51–70
[2018-03-22] MEDS: ipratropium/albuterol 3ml nebule NEB SCH ×6 (02:07→22:55)
[2018-03-22 06:17] LABS: BASOPHILS % (AUTO) 0.2 % (0-1); EOSINOPHILS # (AUTO) 0.1 X10'3 (0-0.9); EOSINOPHILS % (AUTO) 0.9 % (0-6); HEMATOCRIT 28.4 % (35.0-45.0); HEMOGLOBIN 9.5 g/dl (12.0-16.0); LYMPHOCYTES % (AUTO) 7.7 % (21-51); MEAN CORPUSCULAR HEMOGLOBIN 31.2 PG (27.0-31.0); MEAN CORPUSCULAR HGB CONC 33.6 % (33.0-36.5); MEAN CORPUSCULAR VOLUME 92.8 FL (78-98); MEAN PLATELET VOLUME 7.3 FL (7.4-10.4); MONOCYTES # (AUTO) 0.7 X10'3 (0-0.9); MONOCYTES % (AUTO) 5.3 % (2-12); NEUTROPHILS # (AUTO) 10.9 X10'3 (1.8-7.7); NEUTROPHILS % (AUTO) 85.9 % (42-75); PLATELET COUNT 182 X10'3 (140-440); RED BLOOD COUNT 3.06 X10'6 (4.20-5.60); WHITE BLOOD COUNT 12.7 X10'3 (4.5-11.0)
[2018-03-22 06:47] LABS: ALANINE AMINOTRANSFERASE 34 U/L (12-78); ALBUMIN 2.5 G/DL (3.4-5.0); ALBUMIN/GLOBULIN RATIO 0.9 (1.1-1.5); ALKALINE PHOSPHATASE 57 IU/L (46-116); ANION GAP 7 (8-16); ASPARTATE AMINO TRANSFERASE 35 U/L (10-37); BLOOD UREA NITROGEN 30 MG/DL (7-18); BUN/CREATININE RATIO 26.1 (6.6-38.0); CALCIUM 8.3 MG/DL (8.5-10.1); CHLORIDE 110 MMOL/L (99-107); CREATININE 1.15 MG/DL (0.40-0.90); GLUCOSE 114 MG/DL (70-104); MAGNESIUM 2.5 MG/DL (1.5-2.4); POTASSIUM 4.3 MMOL/L (3.5-5.1); SODIUM 144 MMOL/L (135-145); TOTAL CARBON DIOXIDE 27.1 MMOL/L (24-32); TOTAL PROTEIN 5.4 G/DL (6.4-8.2); eGFR 45 ML/MIN
[2018-03-22] MEDS: aspirin 325mg tablet, delayed-release (Ecotrin) PO SCH (07:55)
[2018-03-22] MEDS: amLODIPine 5mg tablet PO SCH (07:55)
[2018-03-22] MEDS: metoprolol tartrate 25mg tablet PO SCH ×2 (07:55→19:58)
[2018-03-22] MEDS: lactobacillus rhamnosus 10,000 MMU CELLS/CAPSULE PO SCH ×2 (07:55→19:58)
[2018-03-22] MEDS: pantoprazole 40mg Tablet.DR PO SCH (07:55)
[2018-03-22] MEDS: atorvastatin 10mg tablet PO SCH (07:55)
[2018-03-22] MEDS: lisinopril 20mg tablet PO SCH (07:56)
[2018-03-22] MEDS: docusate sod 100mg capsule PO SCH ×2 (08:00→19:58)
[2018-03-22] MEDS: Protein Smoothie (high protein) 240ml (8oz) cup PO SCH ×3 (08:00→14:41)
[2018-03-22] MEDS: enoxaparin 30mg/0.3ml syringe SUBCUT SCH (08:00)
[2018-03-22] MEDS: sodium chloride 0.45% 1,000 ML IV SCH (13:30)
[2018-03-22] MEDS: insulin glargine (Lantus) pen - multi-dose SQ SCH (21:00)
[2018-03-23] VITALS (14 sets, daily range): BP systolic 115–160; BP diastolic 61–82
[2018-03-23] MEDS: ipratropium/albuterol 3ml nebule NEB SCH ×3 (02:57→11:00)
[2018-03-23 06:04] LABS: BASOPHILS % (AUTO) 0.4 % (0-1); EOSINOPHILS # (AUTO) 0.2 X10'3 (0-0.9); EOSINOPHILS % (AUTO) 1.9 % (0-6); HEMOGLOBIN 9.3 g/dl (12.0-16.0); LYMPHOCYTES # (AUTO) 0.9 X10'3 (1.1-4.8); LYMPHOCYTES % (AUTO) 8.7 % (21-51); MEAN CORPUSCULAR HGB CONC 33.1 % (33.0-36.5); MEAN CORPUSCULAR VOLUME 93.6 FL (78-98); MEAN PLATELET VOLUME 7.3 FL (7.4-10.4); MONOCYTES # (AUTO) 0.6 X10'3 (0-0.9); MONOCYTES % (AUTO) 6.2 % (2-12); NEUTROPHILS # (AUTO) 8.7 X10'3 (1.8-7.7); NEUTROPHILS % (AUTO) 82.8 % (42-75); PLATELET COUNT 175 X10'3 (140-440); RED BLOOD COUNT 2.99 X10'6 (4.20-5.60); RED CELL DISTRIBUTION WIDTH 16.8 % (11.5-14.5); WHITE BLOOD COUNT 10.4 X10'3 (4.5-11.0)
[2018-03-23 06:30] LABS: ALANINE AMINOTRANSFERASE 31 U/L (12-78); ALBUMIN 2.5 G/DL (3.4-5.0); ALBUMIN/GLOBULIN RATIO 0.9 (1.1-1.5); ALKALINE PHOSPHATASE 61 IU/L (46-116); ANION GAP 9 (8-16); ASPARTATE AMINO TRANSFERASE 35 U/L (10-37); BILIRUBIN,TOTAL 0.9 MG/DL (0.1-1.0); BLOOD UREA NITROGEN 26 MG/DL (7-18); BUN/CREATININE RATIO 26.8 (6.6-38.0); CALCIUM 8.4 MG/DL (8.5-10.1); CHLORIDE 110 MMOL/L (99-107); CREATININE 0.97 MG/DL (0.40-0.90); GLUCOSE 101 MG/DL (70-104); MAGNESIUM 2.5 MG/DL (1.5-2.4); POTASSIUM 4.2 MMOL/L (3.5-5.1); SODIUM 145 MMOL/L (135-145); TOTAL CARBON DIOXIDE 26.1 MMOL/L (24-32); TOTAL PROTEIN 5.3 G/DL (6.4-8.2); eGFR 55 ML/MIN
[2018-03-23] MEDS: enoxaparin 30mg/0.3ml syringe SUBCUT SCH (07:49)
[2018-03-23] MEDS: lisinopril 20mg tablet PO SCH (07:49)
[2018-03-23] MEDS: metoprolol tartrate 25mg tablet PO SCH (07:49)
[2018-03-23] MEDS: aspirin 325mg tablet, delayed-release (Ecotrin) PO SCH (07:50)
[2018-03-23] MEDS: amLODIPine 5mg tablet PO SCH (07:50)
[2018-03-23] MEDS: pantoprazole 40mg Tablet.DR PO SCH (07:50)
[2018-03-23] MEDS: atorvastatin 10mg tablet PO SCH (07:50)
[2018-03-23] MEDS: lactobacillus rhamnosus 10,000 MMU CELLS/CAPSULE PO SCH (07:50)
[2018-03-23] MEDS: docusate sod 100mg capsule PO SCH (07:51)
== END 2018-03-23 17:10 | DRG 216 ==
LOC: ER 14:26 → ICU 2S 18:19
PROVIDERS: ADMIT Internal Medicine Interventional Cardiology; ATTEND Internal Medicine Interventional Cardiology
PROC: 4A023N7 Measurement of Cardiac Sampling and Pressure, Left Heart, Percutaneous Approach (ICD-10-PCS; principal; 2018-03-09)
PROC: 5A02210 Assistance with Cardiac Output using Balloon Pump, Continuous (ICD-10-PCS; 2018-03-09)
PROC: B3121ZZ Fluoroscopy of Left Subclavian Artery using Low Osmolar Contrast (ICD-10-PCS; 2018-03-09)
PROC: B2111ZZ Fluoroscopy of Multiple Coronary Arteries using Low Osmolar Contrast (ICD-10-PCS; 2018-03-09)
PROC: B2151ZZ Fluoroscopy of Left Heart using Low Osmolar Contrast (ICD-10-PCS; 2018-03-09)
PROC: B3101ZZ Fluoroscopy of Thoracic Aorta using Low Osmolar Contrast (ICD-10-PCS; 2018-03-09)
PROC: 02UG0JZ Supplement Mitral Valve with Synthetic Substitute, Open Approach (ICD-10-PCS; 2018-03-10)
PROC: 02100Z9 Bypass Coronary Artery, One Artery from Left Internal Mammary, Open Approach (ICD-10-PCS; 2018-03-10)
PROC: 5A1955Z Respiratory Ventilation, Greater than 96 Consecutive Hours (ICD-10-PCS; 2018-03-10)
PROC: 021209W Bypass Coronary Artery, Three Arteries from Aorta with Autologous Venous Tissue, Open Approach (ICD-10-PCS; 2018-03-10)
PROC: 06BQ4ZZ Excision of Left Saphenous Vein, Percutaneous Endoscopic Approach (ICD-10-PCS; 2018-03-10)
PROC: 30233L1 Transfusion of Nonautologous Fresh Plasma into Peripheral Vein, Percutaneous Approach (ICD-10-PCS; 2018-03-10)
PROC: 30233N1 Transfusion of Nonautologous Red Blood Cells into Peripheral Vein, Percutaneous Approach (ICD-10-PCS; 2018-03-10)
PROC: 30233R1 Transfusion of Nonautologous Platelets into Peripheral Vein, Percutaneous Approach (ICD-10-PCS; 2018-03-10)
PROC: 30233M1 Transfusion of Nonautologous Plasma Cryoprecipitate into Peripheral Vein, Percutaneous Approach (ICD-10-PCS; 2018-03-10)
PROC: 30233K1 Transfusion of Nonautologous Frozen Plasma into Peripheral Vein, Percutaneous Approach (ICD-10-PCS; 2018-03-10)
PROC: 5A1221Z Performance of Cardiac Output, Continuous (ICD-10-PCS; 2018-03-10)
PROC: B24BZZ4 Ultrasonography of Heart with Aorta, Transesophageal (ICD-10-PCS; 2018-03-10)
PROC: 02HV33Z Insertion of Infusion Device into Superior Vena Cava, Percutaneous Approach (ICD-10-PCS; 2018-03-10)
PROC: 02HP32Z Insertion of Monitoring Device into Pulmonary Trunk, Percutaneous Approach (ICD-10-PCS; 2018-03-10)
PROC: 4A133B3 Monitoring of Arterial Pressure, Pulmonary, Percutaneous Approach (ICD-10-PCS; 2018-03-10)
PROC: 4A1239Z Monitoring of Cardiac Output, Percutaneous Approach (ICD-10-PCS; 2018-03-10)
PROC: 02HV33Z Insertion of Infusion Device into Superior Vena Cava, Percutaneous Approach (ICD-10-PCS; 2018-03-10)
PROC: 4A02X4A Measurement of Cardiac Electrical Activity, Guidance, External Approach (ICD-10-PCS; 2018-03-13)
PROC: 0W9B3ZZ Drainage of Left Pleural Cavity, Percutaneous Approach (ICD-10-PCS; 2018-03-20)
PROC: 0W993ZZ Drainage of Right Pleural Cavity, Percutaneous Approach (ICD-10-PCS; 2018-03-20)
DX: I21.4 Non-ST elevation (NSTEMI) myocardial infarction (principal); R57.0 Cardiogenic shock; J96.00 Acute respiratory failure, unspecified whether with hypoxia or hypercapnia; J90 Pleural effusion, not elsewhere classified; N17.9 Acute kidney failure, unspecified; I25.110 Atherosclerotic heart disease of native coronary artery with unstable angina pectoris; I34.0 Nonrheumatic mitral (valve) insufficiency; I10 Essential (primary) hypertension; K21.9 Gastro-esophageal reflux disease without esophagitis; Z90.711 Acquired absence of uterus with remaining cervical stump; Z79.82 Long term (current) use of aspirin; Z79.899 Other long term (current) drug therapy; Z87.891 Personal history of nicotine dependence
CPT/HCPCS: 0232T; 32555; 33967; 36569; 93312; 93325; 93459; 93567; 96365; 99285; 36415; 36600; 71045; 76937; 80048; 80053; 80061; 80069; 81001; 82330; 82435; 82803; 82947; 82948; 83036; 83735; 84100; 84132; 84295; 84484; 85018; 85025; 85027; 85347; 85384; 85610; 85730; 86885; 86900; 86901; 86920; 87070; 93005; 93308; 93880; 93971; 94002; 94003; 94010; 94640; 94667; 94668; 94760; 97110; 97116; 97161; 97530; 99152; 99153; A4315; A4620; A6212; A6213; A6257; A6258; A6402; A6449; A7000; A7015; A7048; C1725; C1750; C1751; C1769; J0171; J0360; J0690; J1170; J1250; J1265; J1644; J1650; J1815; J1940; J2001; J2060; J2150; J2250; J2270; J2370; J2405; J2440; J2720; J2930; J3010; J3370; J3475; J3480; J3490; J7030; J7040; J7060; J7120; P9012; P9016; P9035; P9045; P9047; P9059; Q9967